=== PATIENT | male | born 1960 | race Caucasian/White ===

== ENCOUNTER 2017-10-04 14:12 | Inpatient (IN) | payer OTHER ==
[~2017-10-04] VITALS: Ht 193 cm; Wt 96.8 kg
[~2017-10-04 14:12] MED LIST: AFLURIA 2045 MCG/0.1 IM; CARDIZEM CD 12120 MG PO; CYCLOBENZAPRINE10 M3 PO; ELIQUIS5 MG PO; FOLIC ACID 1 MG PO; LYRICA75 MG PO; NICOTINE T21 MG/24 H TD; TRAMADOL HCL50 MG PO; TRAMADOL50 MG PO; VITAMIN B150 MG PO; VOLTAREN GEL1% TOP
--- NOTE | 2017-10-04 14:18 | ED CARDIAC/CP/PALPITATIONS ---
History of Present Illness General Chief Complaint: Chest Pain Stated Complaint: CHEST PAIN Source: patient, old records Exam Limitations: no limitations Vital Signs & Intake/Output Vital Signs & Intake/Output Vital Signs Date Time Temp Pulse Resp B/P B/P Pulse O2 O2 Flow FiO2 Mean Ox Delivery Rate 10/06 0630 98.5 87 20 144/88 96 10/05 2245 98.7 117 20 158/86 98 Room Air 10/05 1456 97.5 68 20 130/80 97 ED Intake and Output 10/06 0000 10/05 1200 Intake Total 1470 120 Output Total 320 Balance 1150 120 Intake, IV 110 Intake, Oral 1360 120 Output, Urine 320 Patient 255 lb Weight Allergies Coded Allergies: NSAIDS (Non-Steroidal Anti-Inflamma (TURNED WHITE 10/04/17) ibuprofen (TURNED WHITE 10/04/17) Triage Nurses Notes Reviewed? 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 Patient states his last alcohol beverage was today Nursing indicates the patient was given 325 of aspirin and 1 sublingual nitroglycerin by EMS with no change in symptoms of his chest pain. (aDvid FREDERICK,Josh) Reconcile Medications Diltiazem HCl (Diltiazem 24HR ER) 240 MG CAP.ER.24H 1 CAP PO DAILY HEART ( Reported) Duloxetine HCl 60 MG CAPSULE.DR 1 CAP PO DAILY MENTAL HEALTH (Reported) Oxycodone HCl 10 MG TABLET 10 MG PO Q8 PRN PAIN SCALE 7-10 (SEVERE) (Eun SHAH,[facility]) Past History Travel History Traveled to [place] past 21 day No Medical History Any Pertinent Medical History? see below for history Cardiovascular: AFIB, hypertension Psychiatric: alcohol dependence History of MRSA: No History of VRE: No History of CDIFF: No Pneumonia Vaccine: 04/21/13 Influenza Vaccine: 01/13/14 Surgical History Surgical History: non-contributory Psychosocial History Who do you live with Patient/Self Services at Home None What is your primary language Burkinan Family History Family History, If Any: MOTHER FH: diabetes mellitus FATHER FH: emphysema FH: prostate cancer Hx Contributory? No (Josh Watson) Review of Systems Review of Systems Constitutional: Reports: no symptoms. EENTM: Reports: no symptoms. Respiratory: Reports: see HPI, short of breath. Cardiovascular: Reports: see HPI, chest pain. GI: Reports: no symptoms. Genitourinary: Reports: no symptoms. Musculoskeletal: Reports: no symptoms. Skin: Reports: no symptoms. Neurological/Psychological: Reports: no symptoms. Hematologic/Endocrine: Reports: no symptoms. Immunologic/Allergic: Reports: no symptoms. All Other Systems: Reviewed and Negative (Josh Watson) Physical Exam Physical Exam General Appearance: no apparent distress, alert, comfortable Head: atraumatic Eyes: Bilateral: normal appearance, PERRL, EOMI. Ears, Nose, Throat: normal pharynx, normal ENT inspection Neck: normal inspection Respiratory: normal breath sounds, chest non-tender, no respiratory distress Cardiovascular: tachycardia, irregularly irregular Peripheral Pulses: 2+ radial (R) Gastrointestinal: normal bowel sounds, soft, non-tender Extremities: normal inspection, no edema Neurologic/Psych: no motor/sensory deficits, awake Skin: intact, normal color Core Measures ACS in differential dx? Yes CVA/TIA Diagnosis No Sepsis Present: No Sepsis Focused Exam Completed? No (Josh Watson) Progress Differential Diagnosis: AMI, aortic dissection, atrial fibrillation, cholecystitis, CHF/pulm edema, costochondritis, hyperkalemia, hypovolemia, hyperthyroid, hyperventilation, intracranial hemorrhage, musculoskeletal pain, myocarditis, pancreatitis, pericarditis, pneumonia, pneumothorax, PSVT, pulmonary embolism, PUD/GERD, PVCs/PACs, respiratory failure, sepsis, unstable angina, V-fib/V-Tach, WPW syndrome Plan of Care: Orders Procedure Date/time Status CBC WITHOUT DIFFERENTIAL 10/06 0600 Active MISSING MEDICATION FORM 10/06 UNK Active Weight 10/05 1821 Active Vital Signs 10/05 182 Active Teach/Educate 10/05 182 Active Pain Treatment and Response 10/05 182 Active Nutritional Intake, Monitor 10/05 182 Active Isolation 10/05 182 Active Intake & Output 10/05 182 Active Patient Care Conference 10/05 1821 Active Activity/Ambulation 10/05 1820 Active ECHOCARDIOGRAM 10/05 1358 Active LIPASE 10/05 0205 Complete AMYLASE 10/05 0205 Complete Therapeutic Exercise X 15 10/05 UNK Complete Gait Training, 15 Min 10/05 UNK Complete PT EVAL LOW COMPLEX 20 MIN 10/05 UNK Complete Change service to 10/05 UNK Active Admit to inpatient 10/05 UNK Active Lab Add-on Test 10/05 UNK [place] [facility] [place] Active Current Medications Sig/Moshe Start time Last Medication Dose Stop Time Status Admin Diltiazem HCl 125 MG Q16H 10/06 0945 AC (Cardizem DRIP) Sodium Chloride 100 ML (Normal Saline 0.9%) Lidocaine 1 PAT DAILY 10/05 220 CAN (Lidoderm) Lidocaine 1 PAT DAILY NEEDED PRN 10/05 2200 AC (Lidoderm) Diltiazem HCl 125 MG Q24H 10/05 1800 AC 10/05 (Cardizem DRIP) 10/06 0944 1745 Sodium Chloride 100 ML (Normal Saline 0.9%) Lorazepam 2 MG Q4 10/05 1800 AC 10/06 (Ativan) 0626 Diltiazem HCl 90 MG Q6H 10/05 1400 AC 10/06 (Cardizem) 0249 Oxycodone HCl 10 MG Q8 PRN 10/05 1015 AC 10/06 (Roxicodone) 0250 Diltiazem HCl 240 MG DAILY 10/05 0900 CAN (Cardizem CD) Duloxetine HCl 60 MG DAILY 10/05 0900 CAN (Cymbalta) Enoxaparin Sodium 40 MG DAILY 10/05 0900 AC 10/05 (Lovenox) 0850 Folic Acid 1 MG DAILY 10/05 0900 AC 10/05 (Folic Acid) 0849 Multivitamins 1 TAB DAILY 10/05 0900 AC 10/05 (Theragran Vitamins) 0850 Thiamine HCl 100 MG DAILY 10/05 0900 AC 10/05 (Vitamin B1) 0850 Metoclopramide HCl 10 MG ONCE ONE 10/05 0800 CAN (Reglan) 10/05 0801 Lorazepam 0 Q1P PRN 10/05 0300 AC 10/05 (Ativan) 2104 Trimethobenzamide HCl 200 MG TID PRN 10/05 0215 AC 10/05 (Tigan) 2239 Acetaminophen 650 MG Q6P PRN 10/05 0130 AC (Tylenol) Laboratory Tests 10/06/17 0610: CBC w Diff Pending, WBC Pending, RBC Pending, Hgb Pending, Hct Pending, MCV Pending, MCH Pending, MCHC Pending, RDW Pending, Plt Count Pending, MPV Pending Patient upon initial arrival was in no apparent distress patient noted to be atrial fibrillation approximately 150 bpm patient was given his by mouth 360 ER Cardizem and was given IV 10 bolus Cardizem due to persistent rapid A. fib Patient had no change of his chest pain with 2 sublingual nitroglycerin Patient does state that his chest pain has mildly improved he is complaining of a chronic right knee pain where he states that he had an MRI performed recently showing "cartilage damage" patient denies any new mechanism injury to his right knee Patient's was discussed with that narcotics do not be administered due to his intoxication level and he understood he was offered IV Tylenol which he declines Patient still has continued chest pain CT angiogram was negative for pulmonary embolism percent troponin was unremarkable patient was given his by mouth Cardizem with minimal change of rapid A. fib Patient was discussed with Dr. Gillespie who advised Cardizem IV bolus Patient was given 10 more milligrams of IV Cardizem which improved his rate at approximately 80-90 bpm no drip was needed at this time patient will be placed in telemetry observation. Discussed observation placement with patient who agrees Diagnostic Imaging: Viewed by Me: CT Scan. Radiology Impression: no acute abnormality, no fracture Initial ED EKG: AFIB, 129 AFIB Comments: PATIENT: NGA GUEVARA PRESENT AGE: 57 PATIENT ACCOUNT NO: [id number] : 60 LOCATION: [facility] ORDERING PHYSICIAN: Josh FREDERICK SERVICE DATE: 10/04/17 EXAM TYPE: CAT - CTA CHEST-PULMONARY EMBOLISM EXAMINATION: CT ANGIOGRAM OF THE CHEST WITH AND WITHOUT CONTRAST (CT PULMONARY ANGIOGRAM FOR PE) CLINICAL INFORMATION: Chest pain, shortness of breath RAPID AFIB, EVAL PE COMPARISON: CT chest 06/27/2013. TECHNIQUE: Prior to contrast administration, noncontrast localization images were obtained. Subsequently, multidetector volumetric imaging was performed from the thoracic inlet to below the diaphragms following the administration of 80 mL Omnipaque 350 intravenous contrast. No contrast reaction reported. Sagittal, coronal, and MIP oblique sagittal reformatted images were obtained on the CT workstation, uploaded to PACS, and reviewed. Total exam dose-length product 487.01 mGy-cm. FINDINGS: QUALITY OF STUDY/CONTRAST BOLUS: Satisfactory PULMONARY ARTERIES: No central or segmental pulmonary emboli. THORACIC AORTA: No aneurysm or dissection. LUNG: No focal consolidation, nodules or masses. PLEURA: There are 2 semilunar low attenuating lesions that the mid right diaphragm. This is best appreciated on the coronal image #60 and 53. These measure 1.7 x 0.6 and 1.2 x 0.6 cm respectively. They contain no calcification. They are smooth bordered. Both are new since the CT of chest of 06/27/2013. These have low density, Hounsfield unit density measurements of -122 and -180, suggesting fatty deposits. There are stable chronic pleural calcifications at both lung apices. There is no pleural effusion. MEDIASTINUM: Normal heart size. No pericardial effusion. No hilar or mediastinal lymphadenopathy. No evidence of septal bowing or right heart strain. CHEST WALL/AXILLA: No axillary or internal mammary lymphadenopathy. OSSEOUS STRUCTURES: No acute or suspicious osseous abnormality. UPPER ABDOMEN: Unremarkable. No reflux of contrast into the hepatic veins to suggest elevated right heart pressures. IMPRESSION: 1. No evidence of pulmonary embolism. 2. No acute change of the chest. VTE: negative DICTATED BY: Jeramy Ryan MD DATE/TIME DICTATED:10/04/171609 CAMP COOK:DIANA DATE/TIME TRANSCRIBED:10/04/17 (Josh Watson) Departure Departure Disposition: STILL A PATIENT Condition: Stable Clinical Impression Primary Impression: Atrial fibrillation with RVR Secondary Impressions: Alcohol dependence, Chest pain Referrals: Patient Has No Primary Care Dr (PCP/Family) Departure Forms: Customer Survey General Discharge Information Observation Note Spoke With: Easton SHAH,Kaity Physician Advisor Notified: ANIKA SHAH,STEVE Jang Place Patient In: Non-ED OBS Care Area Rationale for Observation: My rational for observation is as follows [patient requires repeat blood work telemetry monitoring cardiology consultation CIWA scoring pain management and possible IV Cardizem drip]. (Josh Watson) Departure Prescriptions: Current Visit Scripts Oxycodone HCl 10 MG PO Q8 PRN PAIN SCALE 7-10 (SEVERE) #120 TAB PA/APPEALS AND GENERALIST CLERK Co-Sign Statement Statement: ED Attending supervision documentation- [y] I saw and evaluated the patient. I have also reviewed all the pertinent lab results and diagnostic results. I agree with the findings and the plan of care as documented in the PA's/APPEALS AND GENERALIST CLERK's documentation. [] I have reviewed the ED Record and agree with the PA's/APPEALS AND GENERALIST CLERK's documentation. [] Additions or exceptions (if any) to the PAs/APPEALS AND GENERALIST CLERK's note and plan are summarized below: 57-year-old male came in with chest pain and A. fib with RVR also intoxicated. The patient's CT angiogram was negative for PE. The patient's heart rate was controlled by 2 IV Cardizem boluses and giving him his regular p.o. Cardizem dose from home. But given the patient's state and his chest pain we will admit him for further evaluation. Also the patient's heart rate needs to be watched closely to make sure that his heart rate stays under control with the Cardizem that he is on. (Eun SHAH,Dieter) Critical Care Note Critical Care Note Critical Care Time: 30-74 min (Josh Watson)
[2017-10-04] MEDS ORDERED: DULOXETINE HCL60 MG PO (14:39)
[2017-10-04] MEDS ORDERED: DILTIAZEM 24HR240 MG PO (14:40)
[2017-10-04 14:58] LABS: ABSOLUTE BASOPHIL COUNT 0 /CUMM (0.0-0.2); ABSOLUTE EOSINOPHIL COUNT 0 /CUMM (0.0-0.7); ABSOLUTE GRANULOCYTE CT 8.7 /CUMM (1.4-6.5); ABSOLUTE LYMPH COUNT 2.3 /CUMM (1.2-3.4); BASOPHIL % 0.2 % (0.0-2.0); EOSINOPHIL % 0.3 % (0-5); GRANULOCYTE % 72.1 % (42.2-75.2); HEMATOCRIT 48.4 % (42-52); MEAN CORPUSCULAR HGB 32.9 PG (27.0-31.0); MEAN CORPUSCULAR HGB CONC 34.6 G/DL (33.0-37.0); MEAN PLATELET VOLUME 8.6 FL (7.4-10.4); PLATELET COUNT 258 /CUMM (130-400); RBC DISTRIBUTION WIDTH 15.9 % (11.5-14.5)
--- NOTE | 2017-10-04 16:27 | CT SCAN REPORT ---
EXAMINATION: CT ANGIOGRAM OF THE CHEST WITH AND WITHOUT CONTRAST (CT PULMONARY ANGIOGRAM FOR PE) CLINICAL INFORMATION: Chest pain, shortness of breath RAPID AFIB, EVAL PE COMPARISON: CT chest 06/27/2013. TECHNIQUE: Prior to contrast administration, noncontrast localization images were obtained. Subsequently, multidetector volumetric imaging was performed from the thoracic inlet to below the diaphragms following the administration of 80 mL Omnipaque 350 intravenous contrast. No contrast reaction reported. Sagittal, coronal, and MIP oblique sagittal reformatted images were obtained on the CT workstation, uploaded to PACS, and reviewed. Total exam dose-length product 487.01 mGy-cm. FINDINGS: QUALITY OF STUDY/CONTRAST BOLUS: Satisfactory PULMONARY ARTERIES: No central or segmental pulmonary emboli. THORACIC AORTA: No aneurysm or dissection. LUNG: No focal consolidation, nodules or masses. PLEURA: There are 2 semilunar low attenuating lesions that the mid right diaphragm. This is best appreciated on the coronal image #60 and 53. These measure 1.7 x 0.6 and 1.2 x 0.6 cm respectively. They contain no calcification. They are smooth bordered. Both are new since the CT of chest of 06/27/2013. These have low density, Hounsfield unit density measurements of -122 and -180, suggesting fatty deposits. There are stable chronic pleural calcifications at both lung apices. There is no pleural effusion. MEDIASTINUM: Normal heart size. No pericardial effusion. No hilar or mediastinal lymphadenopathy. No evidence of septal bowing or right heart strain. CHEST WALL/AXILLA: No axillary or internal mammary lymphadenopathy. OSSEOUS STRUCTURES: No acute or suspicious osseous abnormality. UPPER ABDOMEN: Unremarkable. No reflux of contrast into the hepatic veins to suggest elevated right heart pressures. IMPRESSION: 1. No evidence of pulmonary embolism. 2. No acute change of the chest. VTE: negative
--- NOTE | 2017-10-04 19:56 | History & Physical ---
General Information and HPI Allergies/Medications Allergies: Coded Allergies: NSAIDS (Non-Steroidal Anti-Inflamma (TURNED WHITE 10/04/17) ibuprofen (TURNED WHITE 10/04/17) Home Med list Diltiazem HCl (Diltiazem 24HR ER) 240 MG CAP.ER.24H 1 CAP PO DAILY HEART ( Reported) Duloxetine HCl 60 MG CAPSULE.DR 1 CAP PO DAILY MENTAL HEALTH (Reported) Past History Travel History Traveled to [place] past 21 day No Medical History Neurological: NONE EENT: NONE Cardiovascular: AFIB, hypertension Respiratory: NONE Gastrointestinal: NONE Hepatic: NONE Renal: NONE Musculoskeletal: FIBROMYALGIA PLANTAR FASCIITIS Psychiatric: alcohol dependence Endocrine: NONE History of MRSA: No History of VRE: No History of CDIFF: No Pneumonia Vaccine: 04/21/13 Surgical History Surgical History: non-contributory Past Family/Social History Family History Relations & Conditions if any MOTHER FH: diabetes mellitus FATHER FH: emphysema FH: prostate cancer Psychosocial History Services at Home: None ETOH Use: alcoholic Illicit Drug Use: cocaine, marijuana Core Measures/Misc (11/28) Cerebrovascular Accident CVA/TIA Diagnosis: No Sepsis (View protocol) If YES complete Sepsis Event Note If YES complete Sepsis Event Note
--- NOTE | 2017-10-04 23:38 | History & Physical ---
Panda Vuong MD 10/04/17 0850: General Information and HPI History of Present Illness: 57-year-old man with past medical history of atrial fibrillation not on anticoagulation due to falls, medication noncompliance, EtOH abuse, hypertension , and depression seen for evaluation of exertional shortness of breath, chest pain, and right knee pain. Patient reports that he was crossing the road this morning when his right knee "buckled" causing him to fall to the ground. He reports that he has had severe knee pain ever since prompting him to come to the [facility]. Over the past several days he has been drinking reportedly 3-4 glasses of wine and "partied hard". During this time he had progressively worsening shortness of breath and admits that he has not been taking his medications. Today he developed chest pain that has been progressively worsening. In the ED patient was found to be in atrial fibrillation with rapid ventricular response for which he was given 2 pushes of intravenous Cardizem 10 mg. His chest pain improved after receiving those medications but he continues to complain of severe right knee pain and is demanding intravenous morphine. Review of systems He otherwise denies any headache, fever, chills, blurred/double vision, lightheadedness/dizziness, current chest pain, palpitations, heartburn, current shortness of breath, cough, nausea, vomiting, diarrhea, constipation, abdominal pain, urinary symptoms, numbness, tingling, or weakness. Objective Vital signs: Temp 97.7-98.0, HR 80-174, RR 16-18, BP 115-140/66-89, O2 95-99% on room air Physical exam -General: Well-developed, well-nourished middle-aged man in no acute distress -HEENT: NCAT, Ebony, EOMI, anicteric sclera, moist mucous membranes -Neck: Supple, no JVD, trachea midline, no accessory respiratory muscle use -Cardio: Irregularly irregular, no murmurs/gallops/rubs; tachycardic -Pulmonary: Clear to auscultation bilaterally -Abdomen: Soft, nontender, nondistended, bowel sounds intact -Neuro: Awake and alert, cranial nerves II through XII grossly intact -Extremities: Normal pulses, no edema Labs/imaging/studies -CBC: WBC 12.0, hemoglobin 16.8, hematocrit 48.4, platelet 258 -BMP: Sodium 143, K4.0, CL 104, CO2 21, BUN 7, creatinine 0.9, anion gap 19, glucose 113 -LFT: AST/ALT 68/63, ALP 88 -Miscellaneous: Troponin I <0.01, BNP 230, EtOH 245 -Echocardiogram 01/16/14: LVEF 60% without regional motion abnormalities -EKG: Atrial fibrillation with rapid ventricular response and T-wave inversions V1-V4 -CTA with PE protocol: 1. No evidence of pulmonary embolism. 2. No acute change of the chest. VTE: negative Assessment 57-year-old man with multiple medical problems significant for A. fib not on anticoagulation due to recurrent fall, hypertension, and EtOH abuse seen for evaluation of shortness breath, chest pain and right knee pain. Presently patient denies any chest pain or shortness of breath but admits to severe right knee pain. Vital signs are significant for heart rates ranging 150 -170s that normalized after receiving 20 mg of intravenous diltiazem. Physical examination demonstrates an irregularly irregular tachycardic heart rate with clear lungs and otherwise unremarkable. Significant labs include WBC 12.0, EtOH 245, and troponin I <0.01. EKG demonstrates A. fib with RVR and T-wave inversions V1-V4. CTA chest ruled out pulmonary embolism. Patient received full strength aspirin and sublingual nitroglycerin en route to the ED. In the ED he received 1 g of intravenous acetaminophen, intravenous Cardizem, further nitroglycerin. Clinically patient appears to have had shortness of breath and chest pain secondary to his atrial fibrillation with medication noncompliance. He has not taken his Cardizem for at least one day resulting into rapid ventricular response. He was previously on anticoagulation but was followed off due to history of multiple falls; his CHADsVASc score is only 1. Patient is to be placed under observation on the telemetry floor for telemetry monitoring, serial troponin/EKG, echocardiogram, cardiology consultation, and rate control medications. Problem list -Known atrial fibrillation, now with rapid ventricular response due to medication noncompliance -Right knee pain -History of EtOH abuse -Hypertension -Depression -History of multiple falls Plan -Placed under observation on telemetry floor -Telemetry monitoring -CIWA -consider starting aspirin 81 mg p.o. daily -Restart Cardizem CD 240 mg p.o. daily -Ativan PRN per CIWA -Thiamine/folate/multivitamin -Continue home meds: Cymbalta -Cardiology consult for chest pain -PT evaluation -Trend troponin until peak or three negative sets -Check TSHR -X-ray right knee -Pain control with acetaminophen -Reguar Diet -DVT prophylaxis with lovenox -Full code Allergies/Medications Allergies: Coded Allergies: NSAIDS (Non-Steroidal Anti-Inflamma (TURNED WHITE 10/04/17) ibuprofen (TURNED WHITE 10/04/17) Home Med list Diltiazem HCl (Diltiazem 24HR ER) 240 MG CAP.ER.24H 1 CAP PO DAILY HEART ( Reported) Duloxetine HCl 60 MG CAPSULE.DR 1 CAP PO DAILY MENTAL HEALTH (Reported) Past History Travel History Traveled to [place] past 21 day No Medical History Blood Transfusion Hx: No Neurological: NONE EENT: NONE Cardiovascular: AFIB, hypertension Respiratory: NONE Gastrointestinal: NONE Hepatic: NONE Renal: NONE Musculoskeletal: FIBROMYALGIA PLANTAR FASCIITIS ARTHRITIS Psychiatric: alcohol dependence Endocrine: NONE Cancer(s): NONE History of MRSA: No History of VRE: No History of CDIFF: No Isolation History: Standard Pneumonia Vaccine: 04/21/13 Surgical History Surgical History: non-contributory Past Family/Social History Family History Relations & Conditions if any MOTHER FH: diabetes mellitus FATHER FH: emphysema FH: prostate cancer Psychosocial History Services at Home: None Smoking Status: Former Smoker ETOH Use: alcoholic Illicit Drug Use: cocaine, marijuana Review of Systems Review of Systems Constitutional: Reports: see HPI. Exam & Diagnostic Data Last 24 Hrs of Vital Signs/I&O Vital Signs Date Time Temp Pulse Resp B/P B/P Pulse O2 O2 Flow FiO2 Mean Ox Delivery Rate 10/05 0144 130 18 130/80 10/05 0022 114 18 122/80 10/04 2142 98.2 103 18 126/78 97 Room Air 10/04 1924 97.7 92 18 115/89 99 Room Air 10/04 1748 98.0 92 18 116/78 98 Room Air 10/04 1720 80 10/04 1654 91 18 116/75 99 Room Air 10/04 1649 111 138/89 10/04 1649 108 18 119/89 99 Room Air 10/04 1638 111 18 138/89 98 Room Air 10/04 1518 98 Room Air 10/04 1515 131 16 140/66 98 Room Air 10/04 1510 174 130/78 10/04 1503 174 18 130/78 99 Room Air 10/04 1445 146 18 140/86 98 Room Air 10/04 1418 98.0 141 18 129/75 95 Room Air Intake & Output 10/05 0800 10/05 0000 10/04 1600 Intake Total 120 Output Total Balance 120 Intake, Oral 120 Patient 102.058 kg 102.058 kg Weight Assessment/Plan As Ranked By This Provider Problem List: 1. Chest pain Core Measures/Misc (11/28) Acute Coronary Syndrome ACS Diagnosis: No Congestive Heart Failure Congestive Heart Failure Diagnosis No Cerebrovascular Accident CVA/TIA Diagnosis: No VTE (View Protocol) VTE Risk Factors Age>40 No Mechanical VTE Prophylaxis d/t N/A MechProphylax Ordered No VTE Pharm Prophylaxis d/t NA PharmProphylax ordered Sepsis (View protocol) Sepsis Present: No If YES complete Sepsis Event Note If YES complete Sepsis Event Note Kaity Mccormack MD 10/05/17 0152: Core Measures/Misc (11/28) Sepsis (View protocol) If YES complete Sepsis Event Note If YES complete Sepsis Event Note Attending MD Review Statement Attending Statement Attending MD Statement: examined this patient, discuss w/resident/PA/TECHNICAL SERVICES LIBRARIAN, agreed w/resident/PA/TECHNICAL SERVICES LIBRARIAN, reviewed EMR data (avail) Attending Assessment/Plan: 57M PMH HTN, paroxysmal atrial fibrillation not on anti-coagulation due to frequent falls, EtOH abuse, chronic knee pain presenting with a sensation of chest heaviness and shortness of breath. Patient has been non-compliant with his Cardizem the past few days as he went on a drinking binge with a friend of his. He is typically compliant. He does not follow up with cardiology as he believed taking the Cardizem daily, which he did, would control his a-fib. He reports central chest heaviness, not worse with exertion but worse in the humidity, with dyspnea on exertion. He has significant right knee pain, and fell earlier today when he felt it give out. He had no symptoms prior and did not hit his head. He has no neurological deficit. Was found to be in rapid atrial fibrillation in the 140's, improved to 100's with IV Cardizem. EKG shows rapid atrial fibrillation without ST/T changes. Exam benign, labs unremarkable. 1. Rapid atrial fibrillation with RVR 2. Chest pressure at rest 3. Right knee pain 4. Fall, initial Plan - Observation in telemetry - Start PO Cardizem - No anti-coagulation due to frequent falls - Ativan PRN CIWA, monitor for signs of withdrawal - Serial EKG and troponin - Obtain echocardiogram - Cardiology consult - DVT PPx - Cardiology consult - DVT PPx
[2017-10-05] VITALS: BP 130/80
[2017-10-05 02:00] VITALS: BP 130/80
[2017-10-05 02:43] LABS: ABSOLUTE BASOPHIL COUNT 0.1 /CUMM (0.0-0.2); ABSOLUTE EOSINOPHIL COUNT 0.1 /CUMM (0.0-0.7); ABSOLUTE GRANULOCYTE CT 8.9 /CUMM (1.4-6.5); ABSOLUTE LYMPH COUNT 1.8 /CUMM (1.2-3.4); ABSOLUTE MONOCYTE COUNT 1.3 /CUMM (0.10-0.60); BASOPHIL % 0.5 % (0.0-2.0); EOSINOPHIL % 0.5 % (0-5); HEMATOCRIT 52.2 % (42-52); MEAN CORPUSCULAR HGB 32.5 PG (27.0-31.0); MEAN CORPUSCULAR HGB CONC 33.3 G/DL (33.0-37.0); MEAN CORPUSCULAR VOLUME 97.5 FL (80.0-94.0); MEAN PLATELET VOLUME 8.7 FL (7.4-10.4); PLATELET COUNT 270 /CUMM (130-400); RBC DISTRIBUTION WIDTH 15.8 % (11.5-14.5); RED BLOOD CELL CT 5.35 /CUMM (4.70-6.10); WHITE BLOOD CELL COUNT 12.2 /CUMM (4.8-10.8)
[2017-10-05 04:00] VITALS: BP 130/80
[2017-10-05 06:00] VITALS: BP 130/80; BP 138/90
--- NOTE | 2017-10-05 07:18 | PN-Observation ---
David Masterson 10/05/17 0717: Observation Note Observation Note _ I have personally examined NGA GUEVARA. him disposition is uncertain at this time. Before a determination can be made, he requires continued observation for the following reasons [tachycardia and alcohol withdrawal]. Assessment/Plan Medical Assessment: 57-year-old male with history of atrial fibrillation, not on anti-coagulants due to fall history, and alcohol abuse/dependence and depression. Patient being seen for alcohol withdrawal and tachycardia in the setting of atrial fibrillation with RVR . Problem List: 1. Alcohol abuse 2. Atrial fibrillation with RVR 3. Alcohol withdrawal 4. Fall Plan: Plan: * Continue CIWA protocol for EtOH withdrawal * Tramadol and oxycodone for knee pain * Lidocaine for right shoulder pain * Magnesium oxide p.o. for supplementation * Tigan for nausea * No anticoagulation currently as patient is a high fall risk and has a fall history at home, will not be able to go home on anticoagulation * F/u amylase and lipase * X-ray right knee * Cardiology consulted Code status: Full code Prophylaxis: Lovenox Labs: CBC and BEP, Mg++ Diet: Regular Subjective Follow-up For: EtOH withdrawal Atrial fibrillation with RVR Tele-Events Since Last Visit: Atrial fibrillation, atrial flutter and severe tachycardia overnight, episodes with rates into the 180s Subjective: Patient seen resting in the bed. In no acute distress. He is complaining of knee pain to his right knee after falling before coming to the hospital. Patient reports that he "partied too hard" the past few days, had been drinking large amounts of alcohol prior to falling and hurting his knee. He has a history of falls because his knee often "gives out". He also has right shoulder pain, and although he is extremely tachycardic, some of this may be due to the pain and he is eager to have his pain controlled while hospitalized, since he cannot "self medicate" anymore with alcohol. The patient also complains of abdominal pain, nausea and dry heaving that began overnight. Review of Systems Constitutional: Denies: chills, fever, weakness. Cardiovascular: Denies: chest pain, peripheral edema. Respiratory: Denies: cough, short of breath. Gastrointestinal: Reports: abdominal pain, nausea. Objective Last 24 Hrs of Vital Signs/I&O Vital Signs Date Time Temp Pulse Resp B/P B/P Pulse O2 O2 Flow FiO2 Mean Ox Delivery Rate 10/05 0700 152 10/05 0600 98.2 116 18 130/80 10/05 0600 97.5 109 22 138/90 97 10/05 0400 98.2 115 18 130/80 10/05 0200 98.2 130 18 130/80 10/05 0144 130 18 130/80 10/05 0022 114 18 122/80 10/05 0000 111 18 130/80 10/04 2142 98.2 103 18 126/78 97 Room Air 10/04 1924 97.7 92 18 115/89 99 Room Air 10/04 1748 98.0 92 18 116/78 98 Room Air 10/04 1720 80 07 1654 91 18 116/75 99 Room Air 10/04 1649 111 138/89 10/04 1649 108 18 119/89 99 Room Air 10/04 1638 111 18 138/89 98 Room Air 10/04 1518 98 Room Air 10/04 1515 131 16 140/66 98 Room Air 10/04 1510 174 130/78 10/04 1503 174 18 130/78 99 Room Air 10/04 1445 146 18 140/86 98 Room Air 10/04 1418 98.0 141 18 129/75 95 Room Air Intake & Output 10/05 1600 10/05 0800 10/05 0000 Intake Total 120 120 Output Total Balance 120 120 Intake, Oral 120 120 Patient 102.058 kg Weight Physical Exam General Appearance: Alert, Oriented X3, Cooperative, No Acute Distress HEENT: Atraumatic, PERRLA, EOMI Neck: Supple, No JVD Cardiovascular: Normal S1, Normal S2, Tachycardic Lungs: Clear to Auscultation Abdomen: Normal Bowel Sounds, Tenderness in the upper quadrants bilaterally Viviana SHAH,Teto 10/05/17 1252: Observation Note Observation Note _ I have personally examined NGA GUEVARA. him disposition is uncertain at this time. Before a determination can be made, he requires continued observation for the following reasons Control of rapid A. fib. Management of alcohol withdrawal syndrome Patient seen and examined. Lying comfortably in bed not in any acute distress. Actually jovial. Denies chest pain or palpitations. Denies shortness of breath. On telemetry remains in atrial fibrillation with rapid ventricular response. Currently on the Cardizem drip running at 7.5 mg/h. Complains of Right knee pain. He does admit to chronic pain in that knee and has been told that he has ligamentous injury in the past. On examination the knee is not swollen not warm to touch or erythematous. He has normal range of motion of the knee. He also complains of pain in the right shoulder just above the scapula posteriorly. Again he has normal range of motion here. He admits to chronic pain on and off there. He is requesting for oxycodone for pain control stating that the tramadol he is currently on does not help him. Labs reviewed. TSH within normal limits. He has leukocytosis of 12.2 probably reactive. No clinical evidence of infection at present. Problems: 1. Atrial fibrillation with rapid ventricular response; not on anticoagulation therapy. 2. History of frequent falls 3. Alcohol withdrawal syndrome 4. Degenerative joint disease. Plan: -Continue Cardizem infusion. Follow-up with cardiology service for optimization of rate control. -Follow-up echocardiogram -Fall appears to be mechanical secondary to his underlying degenerative joint disease. -CIWA was reported as 10 today. He has received 3 mg of IV Ativan so far today. Recommend Ativan 2 mg orally every 4 hours. No addition continue Ativan IV as needed elevated CIWA scores.
[2017-10-05] MEDS ORDERED: OXYCODONE HCL10 M2 PO (10:52)
--- NOTE | 2017-10-05 13:58 | Cons- Cardiology ---
General Information and HPI Consulting Request Date of Consult: 10/05/17 Requested By: Teto Michelle MD Reason for Consult: Atrial fibrillation History of Present Illness: The patient is a 57-year-old male with history of chronic atrial fibrillation who presents after a fall. He has had multiple recent falls, and therefore has been determined to not be a good anticoagulant candidate. He has been taking diltiazem for rate control, however he has not had recent follow-up with his physicians. He has been drinking heavily recently. In the emergency department he was found to be in atrial fibrillation with rapid ventricular rate. He was treated with IV diltiazem, and the ventricular rate is under control. Allergies/Medications Allergies: Coded Allergies: NSAIDS (Non-Steroidal Anti-Inflamma (TURNED WHITE 10/04/17) ibuprofen (TURNED WHITE 10/04/17) Home Med List: Diltiazem HCl (Diltiazem 24HR ER) 240 MG CAP.ER.24H 1 CAP PO DAILY HEART ( Reported) Duloxetine HCl 60 MG CAPSULE.DR 1 CAP PO DAILY MENTAL HEALTH (Reported) Oxycodone HCl 10 MG TABLET 10 MG PO Q8 PRN PAIN SCALE 7-10 (SEVERE) Past History Travel History Traveled to [facility] past 21 day No Medical History Blood Transfusion Hx: No Neurological: NONE EENT: NONE Cardiovascular: AFIB, hypertension Respiratory: NONE Gastrointestinal: NONE Hepatic: NONE Renal: NONE Musculoskeletal: FIBROMYALGIA PLANTAR FASCIITIS ARTHRITIS Psychiatric: alcohol dependence Endocrine: NONE Cancer(s): NONE Surgical History Surgical History: non-contributory Family History Relations & Conditions If Any: MOTHER FH: diabetes mellitus FATHER FH: emphysema FH: prostate cancer Psychosocial History Services at Home: None Smoking Status: Former Smoker ETOH Use: alcoholic Illicit Drug Use: cocaine, marijuana Assessment/Plan Assessment/Plan Assessment: The patient is a 57-year-old male with history of chronic atrial fibrillation presenting with chest discomfort and atrial fibrillation with rapid ventricular rate. He has been drinking increased alcohol recently. He had a recent fall and he has been following regularly. Recommendations: * Restart diltiazem at increased dose of 90 mg p.o. every 6 hours, with plan to change to Cardizem CD 360 mg daily starting tomorrow * Echocardiogram * Continue aspirin. The patient has been taken off full anticoagulation because of frequent falls. Consult Acknowledgment - Thank you for your consult request.
[2017-10-05 14:56] VITALS: BP 130/80
[2017-10-05 22:45] VITALS: BP 158/86
--- NOTE | 2017-10-06 06:18 | PN-Observation ---
Observation Note Observation Note _ I have personally examined NGA GUEVARA. him disposition is uncertain at this time. Before a determination can be made, he requires continued observation for the following reasons [alcohol withdrawal]. Assessment/Plan Medical Assessment: 57-year-old male with history of atrial fibrillation, not on anti-coagulants due to fall history, and alcohol abuse/dependence and depression. Patient being seen for alcohol withdrawal and tachycardia in the setting of atrial fibrillation with RVR. Patient was on Cardizem drip, we have changed this to p.o. Cardizem and will continue to monitor the patient's heart rate. Overnight, the patient was in atrial fibrillation and atrial flutter and tachycardic, but is improved this morning with heart rate in the 90s-100 range. He is still complaining of knee pain, but was unable to go down to the x-ray yesterday because of the drip. The patient's CIWA is approximately 13 this morning, but is difficult to completely assess as the patient is very focused on minimizing his pain while here and possibly overreporting. In the setting of constipation, heavy opioid use is not recommended, and tramadol should have no significant difference for the joint pain compared to high-dose opiates. Problem List: 1. Alcohol abuse 2. Alcohol withdrawal 3. Chest pain 4. Atrial fibrillation with RVR Plan: * Continue CIWA protocol for EtOH withdrawal * Oxycodone 10 mg every 8 hours for knee pain * Magnesium oxide p.o. for supplementation * Tigan for nausea * No anticoagulation currently as patient is a high fall risk and has a fall history at home, will not be able to go home on anticoagulation * Continue low-dose aspirin * X-ray right knee * Cardiology consulted Code status: Full code Prophylaxis: Lovenox Labs: CBC and BEP Diet: Regular DVT/Prophylaxis: mechanical Subjective Follow-up For: EtOH withdrawal A. fib with RVR Tele-Events Since Last Visit: Overnight, atrial fibrillation and atrial flutter, with tachycardia up to 107 bpm Subjective: Patient seen resting comfortably in the bed. Currently he complains of pain in his right knee, right shoulder, headache, abdomen, as well as chest pain. The chest pain is reproducible with palpation or movement, located inferiorly bilaterally. The patient appears in no acute distress. The patient says that lidocaine does not help with the shoulder pain, tramadol does not help with the knee pain, but oxycodone could help with all the pain if his dose and frequency were higher. Patient has not had a bowel movement since 10/02. His CIWA is approximately 13, as he is complaining of nausea but no longer dry heaving, complains of headache, agitation and restlessness and anxiety, sweating, but no audiovisual tactile disturbances. Review of Systems Constitutional: Reports: diaphoresis. Denies: chills, fever. Cardiovascular: Reports: chest pain. Denies: edema, palpitations. Respiratory: Denies: cough, short of breath. Gastrointestinal: Denies: abdominal pain, nausea. Neurological/Psychological: Reports: anxiety, headache. Denies: tremors. Objective Last 24 Hrs of Vital Signs/I&O Vital Signs Date Time Temp Pulse Resp B/P B/P Pulse O2 O2 Flow FiO2 Mean Ox Delivery Rate 10/06 0630 98.5 87 20 144/88 96 10/05 2245 98.7 117 20 158/86 98 Room Air 10/05 1456 97.5 68 20 130/80 97 Intake & Output 10/06 1600 10/06 0800 10/06 0000 Intake Total 675.5 690 Output Total Balance 675.5 690 Intake, IV 15.5 30 Intake, Oral 660 660 Patient 115.666 kg Weight Physical Exam General Appearance: Alert, Oriented X3, Cooperative, No Acute Distress HEENT: Atraumatic, PERRLA, EOMI, Mucous Membr. moist/pink Neck: Supple, No JVD Cardiovascular: Regular Rate, Normal S1, Normal S2, No Murmurs Lungs: Clear to Auscultation, Normal Air Movement Abdomen: Soft, No Tenderness Neurological: Normal Gait, Normal Speech
[2017-10-06 06:30] VITALS: BP 144/88
[2017-10-06 08:19] LABS: ABSOLUTE BASOPHIL COUNT 0 /CUMM (0.0-0.2); ABSOLUTE EOSINOPHIL COUNT 0.1 /CUMM (0.0-0.7); ABSOLUTE GRANULOCYTE CT 5.4 /CUMM (1.4-6.5); ABSOLUTE LYMPH COUNT 1.5 /CUMM (1.2-3.4); ABSOLUTE MONOCYTE COUNT 1.2 /CUMM (0.10-0.60); BASOPHIL % 0.5 % (0.0-2.0); EOSINOPHIL % 1.5 % (0-5); GRANULOCYTE % 65.8 % (42.2-75.2); MEAN CORPUSCULAR HGB CONC 34.1 G/DL (33.0-37.0); MEAN CORPUSCULAR VOLUME 96.7 FL (80.0-94.0); MEAN PLATELET VOLUME 8.9 FL (7.4-10.4); PLATELET COUNT 180 /CUMM (130-400); RBC DISTRIBUTION WIDTH 15.6 % (11.5-14.5); RED BLOOD CELL CT 4.62 /CUMM (4.70-6.10); WHITE BLOOD CELL COUNT 8.3 /CUMM (4.8-10.8)
[2017-10-06 10:07] LABS: HEMATOCRIT 44.7 % (42-52)
--- NOTE | 2017-10-06 11:09 | PN- Cardiology ---
Subjective Subjective: The patient is off IV diltiazem, and ventricular rate is under control on oral diltiazem. No chest pain. No palpitations. No lightheadedness or dizziness. Objective Vital Signs and I&Os Vital Signs Date Time Temp Pulse Resp B/P B/P Pulse O2 O2 Flow FiO2 Mean Ox Delivery Rate 10/06 629 98.5 87 20 144/88 96 10/05 2245 98.7 117 20 158/86 98 Room Air 10/05 1456 97.5 68 20 130/80 97 Intake & Output 10/06 1600 10/06 0810/06 0000 10/05 1600 10/05 0810/05 0000 Intake Total 675.5 690 780 120 120 Output Total 320 Balance 675.5 690 460 120 120 Intake, IV 15.5 30 80 Intake, Oral 660 660 700 120 120 Output, Urine 320 Patient 255 lb 225 lb Weight Physical Exam: Gen: NAD HEENT: normal Lungs: clear to auscultation, normal resp. effort Heart: irreg irreg, S1, S2, no murmurs Abdomen: Soft, nontender, no masses Extremities: No clubbing, cyanosis, or edema. Neuro: Alert and oriented x 3, cranial nerves intact Current Medications: Current Medications Sig/Moshe Start time Last Medication Dose Route Stop Time Status Admin Acetaminophen 650 MG Q6P PRN 10/05 0130 AC PO Aspirin 81 MG DAILY 10/06 09 AC 10/06 PO 1034 Aspirin 81 MG ONCE ONE 10/05 1845 DC 10/05 PO 10/05 1846 2104 Diltiazem HCl 125 MG Q16H 10/06 0945 CAN Sodium Chloride 100 ML IV Diltiazem HCl 125 MG Q24H 10/05 1800 DC 10/05 Sodium Chloride 100 ML IV 10/06 0944 1745 Diltiazem HCl 90 MG Q6H 10/05 1400 AC 10/06 PO 0800 Diltiazem HCl 240 MG DAILY 10/05 1100 DC PO Diltiazem HCl 125 MG Q24H 10/05 0300 DC 10/05 Sodium Chloride 100 ML IV 10/05 1759 0326 Docusate Sodium 100 MG DAILY NEEDED PRN 10/06 0915 AC PO Enoxaparin Sodium 40 MG DAILY 10/05 09 AC 10/06 SC 0806 Folic Acid 1 MG DAILY 10/05 09 AC 10/06 PO 0800 Gabapentin 100 MG TID 10/06 1056 UNVr PO Lidocaine 1 PAT DAILY NEEDED PRN 10/05 2200 AC TOP Lorazepam 1.5 MG Q8 10/06 1400 AC PO Lorazepam 1.5 MG Q6 10/06 1200 DC PO Lorazepam 2 MG Q4 10/05 1800 DC 10/06 PO 0626 Lorazepam 0 Q1P PRN 10/05 0300 AC 10/06 IV 0848 Magnesium Oxide 400 MG ONE ONE 10/06 1045 DC PO 10/06 1046 Multivitamins 1 TAB DAILY 10/05 0900 AC 10/06 PO 0800 Oxycodone HCl 10 MG Q8 PRN 10/05 1015 AC 10/06 PO 1034 Senna/Docusate Sodium 1 TAB BID 10/06 0910 AC 10/06 PO 1034 Thiamine HCl 100 MG DAILY 10/05 0900 AC 10/06 PO 0800 Tramadol HCl 50 MG Q6P PRN 10/05 0800 DC 10/05 PO 0849 Trimethobenzamide HCl 200 MG TID PRN 10/05 0215 AC 10/05 IM 2239 Results Last 48 Hrs of Labs/Mics: Laboratory Tests 10/06/17 0610: CBC w Diff NO MAN DIFF REQ, RBC 4.62 L, MCV 96.7 H, MCH 33.0 H, MCHC 34.1, RDW 15.6 H, MPV 8.9, Gran % 65.8, Lymphocytes % 18.0 L, Monocytes % 14.2 H, Eosinophils % 1.5, Basophils % 0.5, Absolute Granulocytes 5.4, Absolute Lymphocytes 1.5, Absolute Monocytes 1.2 H, Absolute Eosinophils 0.1, Absolute Basophils 0 10/05/17 0205: Anion Gap 19 H, Estimated GFR > 60, BUN/Creatinine Ratio 8.8, Magnesium 1.8, Troponin I < 0.01, Amylase 58, Lipase 295, CBC w Diff NO MAN DIFF REQ, RBC 5.35, MCV 97.5 H, MCH 32.5 H, MCHC 33.3, RDW 15.8 H, MPV 8.7, Gran % 73.0, Lymphocytes % 15.2 L, Monocytes % 10.8 H, Eosinophils % 0.5, Basophils % 0.5, Absolute Granulocytes 8.9 H, Absolute Lymphocytes 1.8, Absolute Monocytes 1.3 H, Absolute Eosinophils 0.1, Absolute Basophils 0.1 10/04/172037: Troponin I < 0.01 10/04/172002: Urine Opiates Screen < 100, Methadone Screen 225, Barbiturate Screen < 60, Ur Phencyclidine Scrn < 6.00, Amphetamines Screen < 100, U Benzodiazepines Scrn > 800 H, Urine Cocaine Screen < 50, Urine Cannabis Screen < 5.00 10/04/17 1447: Anion Gap 19 H, Estimated GFR > 60, BUN/Creatinine Ratio 7.8, Glucose 113 H, Calcium 9.3, Total Bilirubin 0.6, AST 68 H, ALT 63, Alkaline Phosphatase 88, Troponin I < 0.01, Roa-T-Utykulxndjg Pept 231 H, Total Protein 7.2, Albumin 4.2 , Globulin 3.0, Albumin/Globulin Ratio 1.4, TSH &T3 &Free T4 Intrp 2.540, CBC w Diff NO MAN DIFF REQ, RBC 5.10, MCV 95.0 H, MCH 32.9 H, MCHC 34.6, RDW 15.9 H , MPV 8.6, Gran % 72.1, Lymphocytes % 18.7 L, Monocytes % 8.7, Eosinophils % 0.3, Basophils % 0.2, Absolute Granulocytes 8.7 H, Absolute Lymphocytes 2.3, Absolute Monocytes 1.0 H, Absolute Eosinophils 0, Absolute Basophils 0, Serum Alcohol 245.0 Assessment/Plan Assessment/Plan Assessment: 1. Atrial fibrillation, rate under control 2. Frequent falls 3. Alcohol abuse Plan: * Change Cardizem CD to 360 mg p.o. daily * Echocardiogram pending * Continue aspirin. Anticoagulation is contraindicated because of frequent falls * Follow up 1 week after discharge Continue telemetry? Yes
--- NOTE | 2017-10-06 11:37 | PN- Housestaff ---
Subjective Follow-up For: EtOH withdrawal Atrial fibrillation Tele-Events Since Last Visit: Atrial fibrillation and atrial flutter overnight, with rate up to 170 bpm Subjective: Patient seen resting comfortably in the bed. Currently he complains of pain in his right knee, right shoulder, headache, abdomen, as well as chest pain. The chest pain is reproducible with palpation or movement, located inferiorly bilaterally. The patient appears in no acute distress. The patient says that lidocaine does not help with the shoulder pain, tramadol does not help with the knee pain, but oxycodone could help with all the pain if his dose and frequency were higher. Patient has not had a bowel movement since 10/02. His CIWA is approximately 13, as he is complaining of nausea but no longer dry heaving, complains of headache, agitation and restlessness and anxiety, sweating, but no audiovisual tactile disturbances. Review of Systems Constitutional: Denies: chills, fever. Objective Last 24 Hrs of Vital Signs/I&O Vital Signs Date Time Temp Pulse Resp B/P B/P Pulse O2 O2 Flow FiO2 Mean Ox Delivery Rate 10/06 0630 98.5 87 20 144/88 96 10/05 2245 98.7 117 20 158/86 98 Room Air 10/05 1456 97.5 68 20 130/80 97 Intake & Output 10/06 1600 10/06 0800 10/06 0000 Intake Total 675.5 690 Output Total Balance 675.5 690 Intake, IV 15.5 30 Intake, Oral 660 660 Patient 115.666 kg Weight Physical Exam General Appearance: Alert, Oriented X3, Cooperative, No Acute Distress Assessment/Plan Assessment: 57-year-old male with history of atrial fibrillation, not on anti-coagulants due to fall history, and alcohol abuse/dependence and depression. Patient being seen for alcohol withdrawal and tachycardia in the setting of atrial fibrillation with RVR. Patient was on Cardizem drip, we have changed this to p.o. Cardizem and will continue to monitor the patient's heart rate. Overnight, the patient was in atrial fibrillation and atrial flutter and tachycardic, but is improved this morning with heart rate in the 90s-100 range. He is still complaining of knee pain, but was unable to go down to the x-ray yesterday because of the drip. The patient's CIWA is approximately 8-10 this morning, but is difficult to completely assess as the patient is very focused on minimizing his pain while here and possibly overreporting. In the setting of constipation, heavy opioid use is not recommended, and tramadol should have no significant difference for the joint pain compared to high-dose opiates. He could be experiencing neuropathy, so Gabapentin may also help with pain control. Problems: 1. EtOH withdrawal 2. Atrial fibrillation with RVR 3. R Knee pain Plan: * Patient is now a full admission * Begin tapering ativan * Oxycodone 10 mg every 8 hours for knee pain * Gabapentin 100mg TID for possible neuropathy * Magnesium oxide p.o. for supplementation * Continue low-dose aspirin * X-ray right knee * Follow-up echo Code status: Full code Prophylaxis: Lovenox Labs: CBC and BEP Diet: Regular Problem List: 1. Alcohol withdrawal 2. Chest pain 3. Atrial fibrillation with RVR 4. H/O ETOH abuse Pain Ratin Pain Location: knee, chest, head, shoulder Pain Goal: Pain 4 or less Pain Plan: oxycodone 10mg q8 gabapentin 100mg tid Tomorrow's Labs & Rationales: CBC & BEP
--- NOTE | 2017-10-06 12:21 | PN- Att Addend ---
Attending Addendum Attending Brief Note Patient seen and examined, he was complaining of not feeling well. He was complaining of pain from his fibromyalgia. His legs are hurting too much. He has been switched to oral Cardizem and heart rate is in acceptable range. His CIWA scores are ranging between 8 and 13. Vital Signs Date Time Temp Pulse Resp B/P B/P Pulse O2 O2 Flow FiO2 Mean Ox Delivery Rate 10/06 0630 98.5 87 20 144/88 96 10/05 2245 98.7 117 20 158/86 98 Room Air 10/05 1456 97.5 68 20 130/80 97 on exam; aox3, nad. cv; s1, s2, rrr resp; clear abd; soft, nt, bs+ ext; no edema Laboratory Tests 10/06 609 Hematology CBC w Diff NO MAN DIFF REQ WBC (4.8 - 10.8 /CUMM) 8.3 RBC (4.70 - 6.10 /CUMM) 4.62 L Hgb (14.0 - 18.0 G/DL) 15.3 Hct (42 - 52 %) 44.7 MCV (80.0 - 94.0 FL) 96.7 H MCH (27.0 - 31.0 PG) 33.0 H MCHC (33.0 - 37.0 G/DL) 34.1 RDW (11.5 - 14.5 %) 15.6 H Plt Count (130 - 400 /CUMM) 180 MPV (7.4 - 10.4 FL) 8.9 Gran % (42.2 - 75.2 %) 65.8 Lymphocytes % (20.5 - 51.1 %) 18.0 L Monocytes % (1.7 - 9.3 %) 14.2 H Eosinophils % (0 - 5 %) 1.5 Basophils % (0.0 - 2.0 %) 0.5 Absolute Granulocytes (1.4 - 6.5 /CUMM) 5.4 Absolute Lymphocytes (1.2 - 3.4 /CUMM) 1.5 Absolute Monocytes (0.10 - 0.60 /CUMM) 1.2 H Absolute Eosinophils (0.0 - 0.7 /CUMM) 0.1 Absolute Basophils (0.0 - 0.2 /CUMM) 0 A/P; 57 y/o M with pmh sig for atrial fibrillation not on anticoagulation due to falls, medication noncompliance, EtOH abuse, hypertension, and depression admitted with atrial fibrillation with rapid ventricular response, alcohol intoxication and complains of pain everywhere especially in bilateral lower extremities and his right knee. Agree with getting a right knee x-ray. Continue oxycodone at present dose. Check CT BMP, patient had been prescribed oxycodone and tramadol by different providers. Would recommend adding Neurontin 100 mg 3 times daily for possible neuropathy/fibromyalgia pain. Continue Ativan taper. Please follow further cardiology recommendations. DVT px; Lovenox.
--- NOTE | 2017-10-06 14:45 | RADIOLOGY REPORT ---
EXAMINATION: XR KNEE, RIGHT CLINICAL INFORMATION: Right knee pain. Status post fall. COMPARISON: None TECHNIQUE: Four views of the right knee. FINDINGS: The bony alignment is intact. The cortices are intact. No joint effusion is seen. Enthesopathy is noted at the insertional site of the quadriceps tendon to the patella. No focal osseous abnormalities. IMPRESSION: No radiographic evidence of any acute fracture, subluxation or dislocation is seen. Mild enthesopathy at the insertional site of the quadriceps tendon to the patella.
[2017-10-06 15:02] VITALS: BP 126/80
--- NOTE | 2017-10-06 15:34 | Patient Discharge Instructions ---
Discharge Instructions General Discharge Information You were seen/treated for: Alcohol withdrawal Atrial fibrillation Watch for these problems: If you experience severe headache, nausea/vomiting, agitation/anxiety, audio/ visual/touch hallucinations, palpitations, chest pain, shortness of breath please go to your nearest emergency department. Special Instructions: Please follow-up with your spool fixer and primary care doctor about your recent hospitalization. Diet Continue normal diet: Yes Recommended Diet: Regular Activity Full Activity/No Limits: No Activity Self Limited: Yes Acute Coronary Syndrome Inclusion Criteria At DC or during hospital stay patient has or had the following: Discharge Core Measures Meds if any: Prescribed or Continued at Discharge Meds if any: NOT Prescribed or Continued at Discharge Congestive Heart Failure Inclusion Criteria At DC or during hospital stay patient has or had the following: Discharge Core Measures Meds if any: Prescribed or Continued at Discharge Meds if any: NOT Prescribed or Continued at Discharge Cerebrovascular accident Inclusion Criteria At DC or during hospital stay patient has or had the following: CVA/TIA Diagnosis No Discharge Core Measures Meds if any: Prescribed or Continued at Discharge Meds if any: NOT Prescribed or Continued at Discharge Venous thromboembolism Discharge Core Measures - Per Current guidelines, there needs to be overlap - treatment for the first 5 days of Warfarin therapy. - If discharged on Warfarin prior to 5 days of - overlap therapy, the patient will need to be - assessed for post discharge needs including - *Post discharge parental anticoagulation - *Warfarin and/or parental anticoagulation education - *Follow up date to check INR post discharge Meds if any: Prescribed or Continued at Discharge Note: Overlap Therapy is Warfarin and Anticoagulant Meds if any: NOT Prescribed or Continued at Discharge
--- NOTE | 2017-10-06 20:03 | ECHOCARDIOGRAM REPORT ---
NGA GUEVARA Age: 57 : 1960 Gender: M Exam Date: 10/05/2017 16:07 Exam Location: 1 [address] Ht (in): 76 Wt (lb): 225 BSA: 2.35 BP: 130 / 80 Ordering Physician: Shanell Younger MD Referring Physician: Ramu Gillespie MD Technologist: Tiffany Bass [facility] Room Number: 175 Indications: Afib/flutter Rhythm: Atrial fibrillation Technical Quality: Fair FINDINGS Left Ventricle Normal size left ventricle. Normal left ventricular ejection fraction visually estimated at >60%. No obvious regional wall motion abnormalities. Right Ventricle Normal right ventricular size and function. Right Atrium Normal right atrial size. Left Atrium Normal left atrial size. Mitral Valve Mitral valve thickened. Mild mitral regurgitation. Aortic Valve Diffuse thickening (sclerosis) of the aortic valve cusps without reduced excursion. No aortic stenosis. No aortic regurgitation. Tricuspid Valve Tricuspid valve not well visualized, grossly normal. Mild tricuspid regurgitation. No evidence of pulmonary hypertension. Pulmonic Valve Pulmonic valve not well visualized, grossly normal. Mild pulmonic regurgitation. Pericardium Small pericardial effusion. No echocardiographic findings to suggest a hemodynamically significant pericardial effusion. Great Vessels Normal size aortic root. CONCLUSIONS Normal size left ventricle. Normal left ventricular ejection fraction visually estimated at > 60%. No obvious regional wall motion abnormalities. Mild mitral regurgitation. Mild tricuspid regurgitation. Mild pulmonic regurgitation. Ramu Gillespie M.D. (Electronically Signed) Final Date: 06 October 2017 20:02 MEASUREMENTS (Male / Female) Normal Values 2D ECHO LV Diastolic Diameter PLAX 3.9 cm 4.2 - 5.9 / 3.9 - 5.3 cm LV Systolic Diameter PLAX 2.4 cm 2.1 - 4.0 cm LV Fractional Shortening PLAX 38.5 % 25 - 46 % LV Ejection Fraction 2D Teich 69.4 % IVS Diastolic Thickness 1.2 cm LVPW Diastolic Thickness 1.0 cm LV Relative Wall Thickness 0.6 RV Internal Dim ED PLAX 2.5 cm 1.9 - 3.8 cm LVOT Diameter 2.0 cm Aortic Root Diameter 2.9 cm LA Systolic Diameter LX 4.9 cm 3.0 - 4.0 / 2.7 - 3.8 cm LA Volume 42.0 cm 18 - 58 / 22 - 52 cm Ascending Aorta Diameter 3.6 cm DOPPLER AV Peak Velocity 129.0 cm/s AV Peak Gradient 6.7 mmHg AV Mean Velocity 95.8 cm/s AV Mean Gradient 4.0 mmHg AV Velocity Time Integral 23.8 cm LVOT Peak Velocity 128.0 cm/s LVOT Peak Gradient 6.6 mmHg LVOT Mean Velocity 82.6 cm/s LVOT Mean Gradient 3.0 mmHg LVOT Velocity Time Integral 22.6 cm LVOT Stroke Volume 71.0 cm AV Area Cont Eq vti 3.0 cm AV Area Cont Eq pk 3.1 cm MV Peak Velocity 105.0 cm/s MV Peak Gradient 4.4 mmHg MV Mean Velocity 57.3 cm/s MV Mean Gradient 2.0 mmHg Mitral E Point Velocity 108.0 cm/s MV PHT Velocity 109.0 cm/s MV Deceleration Rush 579.0 cm/s MV Pressure Half Time 56.5 ms MV Area PHT 3.9 cm MV Deceleration Time 224.0 ms TR Peak Velocity 217.0 cm/s TR Peak Gradient 18.8 mmHg Right Atrial Pressure 5.0 mmHg Pulmonary Artery Systolic Pressure 23.8 mmHg Right Ventricular Systolic Pressure 23.8 mmHg PV Peak Velocity 103.0 cm/s PV Peak Gradient 4.2 mmHg PV Mean Velocity 70.9 cm/s PV Mean Gradient 2.0 mmHg PV Velocity Time Integral 17.0 cm LV E' Lateral Velocity 4.8 cm/s Mitral E to LV E' Lateral Ratio 22.3 LV E' Septal Velocity 7.8 cm/s Mitral E to LV E' Septal Ratio 13.8
[2017-10-06 22:34] VITALS: BP 122/88
[2017-10-07 06:28] VITALS: BP 126/78
--- NOTE | 2017-10-07 06:34 | PN- Housestaff ---
David Masterson 10/07/17 0633: Subjective Follow-up For: EtOH withdrawal Atrial fibrillation Tele-Events Since Last Visit: Atrial fibrillation and atrial flutter, with rates 110-120s over night Subjective: Patient seen resting comfortably in the bed. He is a bit drowsy from the Ativan. He currently denies chest pain, shortness of breath, dizziness, has palpitations. He is currently complaining of knee pain, headache, but denies abdominal pain and reports that his shoulder pain has resolved. He reports some anxiety/restlessness overnight, but denies audio/visual/tactile disturbances. Review of Systems Constitutional: Denies: chills, fever, weakness. Cardiovascular: Reports: chest pain. Denies: edema, orthopena, palpitations, peripheral edema. Respiratory: Denies: cough, short of breath, wheezing. Gastrointestinal: Denies: abdominal pain, nausea, vomiting. Objective Last 24 Hrs of Vital Signs/I&O Vital Signs Date Time Temp Pulse Resp B/P B/P Pulse O2 O2 Flow FiO2 Mean Ox Delivery Rate 10/07 0628 98.0 75 18 126/78 98 Room Air 10/06 2234 98.3 86 18 122/88 96 Room Air 10/06 2154 Room Air 10/06 1502 98.1 75 20 126/80 96 Intake & Output 10/07 0800 10/07 0000 10/06 1600 Intake Total 660 220 800 Output Total Balance 660 220 800 Intake, Oral 660 220 800 Patient 98.174 kg Weight Weight Bed scale Measurement Method Physical Exam General Appearance: Alert, Oriented X3, Cooperative, No Acute Distress HEENT: Atraumatic, PERRLA, EOMI, Mucous Membr. moist/pink Neck: Supple, No JVD, No thryomegaly, +2 Carotid Pulse wo Bruit Cardiovascular: Normal S1, Normal S2, No Murmurs, tacyhcardic Lungs: Clear to Auscultation, Normal Air Movement Abdomen: Normal Bowel Sounds, Soft, No Tenderness Neurological: Normal Gait, Normal Speech, Strength at 5/5 X4 Ext Extremities: No Clubbing, No Cyanosis, No Edema Assessment/Plan Assessment: 57-year-old male with history of atrial fibrillation, not on anti-coagulants due to fall history, and alcohol abuse/dependence and depression. Patient being seen for alcohol withdrawal and tachycardia in the setting of atrial fibrillation with RVR. Patient was on Cardizem drip, we have changed this to p.o. Cardizem CD 360mg, but required a 5mg Cardizem push this afternoon as the patient was tachycardic into the 150's. Overnight, the patient was in atrial fibrillation and atrial flutter and tachycardic 110-120's. The knee x-ray showed mild enthesopathy at the insertion of the quadriceps tendon, further workup as outpatient. In the setting of constipation, heavy opioid use is not recommended, and tramadol should have no significant difference for the joint pain compared to high-dose opiates, but patient requesting oxycodone. He is possibly experiencing neuropathy, Gabapentin seems to be helping with pain control. Problems: 1. EtOH withdrawal 2. Atrial fibrillation with RVR 3. R Knee pain Plan: * Continue tapering ativan and CIWA protocol * Change Oxycodone to 10 mg every 6 hours for knee pain * Continue tramadol 50mg * Gabapentin increased to 200mg TID for possible neuropathy * Magnesium oxide p.o. as needed for supplementation to keep Mg > 2.0 * Continue low-dose aspirin * Added Metoprolol 12.5mg PO BID Code status: Full code Prophylaxis: Lovenox Labs: CBC and BEP Diet: Regular Problem List: 1. Alcohol withdrawal 2. Atrial fibrillation with RVR 3. Chest pain Pain Ratin Pain Location: knee, chest, headache, abdomen, shoulder Pain Goal: Pain 4 or less Pain Plan: per pathway Tomorrow's Labs & Rationales: cbc & BEP Dilip SHAH,Candy 10/07/17 1142: Attending MD Review Statement Attending Statement Attending MD Statement: examined this patient, discuss w/resident/PA/CONFERENCE INTERPRETER, agreed w/resident/PA/CONFERENCE INTERPRETER, reviewed EMR data (avail), discussed with nursing, discussed with case mgmt, reviewed images, amended to note Attending Assessment/Plan: Patient seen and examined, feels overall better today. Still has body pain from fibromyalgia. CIW scores are running low. Vital Signs Date Time Temp Pulse Resp B/P B/P Pulse O2 O2 Flow FiO2 Mean Ox Delivery Rate 10/07 0628 98.0 75 18 126/78 98 Room Air 10/06 2234 98.3 86 18 122/88 96 Room Air 10/06 2154 Room Air 10/06 1502 98.1 75 20 126/80 96 on exam; aox3, nad. cv; s1, s2, rrr resp; clear abd; soft, nt, bs+ ext; no edema Laboratory Tests 10/07 0744 Chemistry Sodium (137 - 145 mmol/L) 138 Potassium (3.5 - 5.1 mmol/L) 3.9 Chloride (98 - 107 mmol/L) 100 Carbon Dioxide (22 - 30 mmol/L) 30 Anion Gap (5 - 16) 8 BUN (9 - 20 mg/dL) 16 Creatinine (0.7 - 1.2 mg/dL) 0.9 Estimated GFR (>60 ml/min) > 60 BUN/Creatinine Ratio (7 - 25 %) 17.8 Hematology CBC w Diff NO MAN DIFF REQ WBC (4.8 - 10.8 /CUMM) 6.4 RBC (4.70 - 6.10 /CUMM) 4.67 L Hgb (14.0 - 18.0 G/DL) 15.3 Hct (42 - 52 %) 45.1 MCV (80.0 - 94.0 FL) 96.6 H MCH (27.0 - 31.0 PG) 32.8 H MCHC (33.0 - 37.0 G/DL) 33.9 RDW (11.5 - 14.5 %) 15.5 H Plt Count (130 - 400 /CUMM) 169 MPV (7.4 - 10.4 FL) 9.2 Gran % (42.2 - 75.2 %) 57.0 Lymphocytes % (20.5 - 51.1 %) 26.2 Monocytes % (1.7 - 9.3 %) 12.6 H Eosinophils % (0 - 5 %) 3.2 Basophils % (0.0 - 2.0 %) 1.0 Absolute Granulocytes (1.4 - 6.5 /CUMM) 3.7 Absolute Lymphocytes (1.2 - 3.4 /CUMM) 1.7 Absolute Monocytes (0.10 - 0.60 /CUMM) 0.8 H Absolute Eosinophils (0.0 - 0.7 /CUMM) 0.2 Absolute Basophils (0.0 - 0.2 /CUMM) 0.1 A/P: 57 y/o M with pmh sig for atrial fibrillation not on anticoagulation due to falls, medication noncompliance, EtOH abuse, hypertension, and depression admitted with atrial fibrillation with rapid ventricular response, alcohol intoxication and chronic pain. We will increase the dose of gabapentin. Would also keep oxycodone at every 6 hours as needed. We will continue to taper Ativan. Heart rate is still not well controlled. Please discuss with emissions repair technician about med adjustments. Patient currently on 360 mg of Cardizem. Please make sure potassium is 4 out above and magnesium is 2 or above. DVT px: Lovenox.
[2017-10-07 08:47] LABS: ABSOLUTE BASOPHIL COUNT 0.1 /CUMM (0.0-0.2); ABSOLUTE EOSINOPHIL COUNT 0.2 /CUMM (0.0-0.7); ABSOLUTE GRANULOCYTE CT 3.7 /CUMM (1.4-6.5); ABSOLUTE LYMPH COUNT 1.7 /CUMM (1.2-3.4); ABSOLUTE MONOCYTE COUNT 0.8 /CUMM (0.10-0.60); EOSINOPHIL % 3.2 % (0-5); HEMATOCRIT 45.1 % (42-52); MEAN CORPUSCULAR HGB 32.8 PG (27.0-31.0); MEAN CORPUSCULAR HGB CONC 33.9 G/DL (33.0-37.0); MEAN CORPUSCULAR VOLUME 96.6 FL (80.0-94.0); MEAN PLATELET VOLUME 9.2 FL (7.4-10.4); PLATELET COUNT 169 /CUMM (130-400); RBC DISTRIBUTION WIDTH 15.5 % (11.5-14.5); RED BLOOD CELL CT 4.67 /CUMM (4.70-6.10); WHITE BLOOD CELL COUNT 6.4 /CUMM (4.8-10.8)
[2017-10-07 14:00] VITALS: BP 152/78
--- NOTE | 2017-10-07 15:05 | PN- Cardiology ---
Subjective Subjective: Patient notes occasional brief sharp pains in his chest. He is otherwise feeling mostly well no shortness of breath. Occasional palpitations. No diaphoresis. No nausea or vomiting Objective Vital Signs and I&Os Vital Signs Date Time Temp Pulse Resp B/P B/P Pulse O2 O2 Flow FiO2 Mean Ox Delivery Rate 10/07 1525 124 134/80 10/07 1436 120 152/78 10/07 1400 97.7 101 20 152/78 97 Room Air 10/07 0628 98.0 75 18 126/78 98 Room Air 10/06 2234 98.3 86 18 122/88 96 Room Air 10/06 2154 Room Air Intake & Output 10/07 1600 10/07 0800 10/07 0000 10/06 1600 10/06 0800 10/06 0000 Intake Total 1500 660 220 800 675.5 690 Output Total Balance 1500 660 220 800 675.5 690 Intake, IV 15.5 30 Intake, Oral 1500 660 220 800 660 660 Patient 216 lb 255 lb Weight Weight Bed scale Measurement Method Physical Exam: Gen: NAD HEENT: normal Lungs: clear to auscultation, normal resp. effort Heart: irreg irreg, S1, S2, no murmurs Abdomen: Soft, nontender, no masses Extremities: No clubbing, cyanosis, or edema. Neuro: Alert and oriented x 3, cranial nerves intact Current Medications: Current Medications Sig/Moshe Start time Last Medication Dose Route Stop Time Status Admin Acetaminophen 650 MG .STK-MED ONE 10/07 0111 DC PO 10/07 0112 Acetaminophen 650 MG Q6P PRN 10/05 0130 AC 10/07 PO 0204 Aspirin 81 MG DAILY 10/06 09 10/07 PO 0847 Diltiazem HCl 5 MG ONCE ONE 10/07 1430 DC 10/07 IV 10/07 1431 1436 Diltiazem HCl 360 MG DAILY 10/06 1318 AC 10/07 PO 0847 Docusate Sodium 100 MG DAILY NEEDED PRN 10/06 0915 AC PO Enoxaparin Sodium 40 MG DAILY 10/05 09 AC 10/07 SC 0848 Folic Acid 1 MG DAILY 10/05 09 AC 10/07 PO 0846 Gabapentin 200 MG TID 10/07 1400 AC 10/07 PO 1315 Gabapentin 100 MG TID 10/06 1056 DC 10/07 PO 1305 Lidocaine 1 PAT DAILY NEEDED PRN 10/05 2200 [facility] Lorazepam 1 MG Q8 10/07 1400 AC 10/07 PO 1305 Lorazepam 1.5 MG Q8 10/06 1400 DC 10/07 PO 0708 Lorazepam 0 Q1P PRN 10/05 0300 10/07 IV 1706 Metoprolol Tartrate 12.5 MG BID 10/07 1500 AC 10/07 PO 1525 Multivitamins 1 TAB DAILY 10/05 0900 AC 10/07 PO 0847 Oxycodone HCl 10 MG Q6P PRN 10/07 1315 AC 10/07 PO 1523 Oxycodone HCl 10 MG Q8 PRN 10/05 1015 DC 10/07 PO 0934 Patient Medication 1 ED ONE ONE 10/07 1430 SC 10/07 Teaching ED 10/07 1431 1435 Senna/Docusate Sodium 1 TAB BID 10/06 0910 10/07 PO 0847 Thiamine HCl 100 MG DAILY 10/05 0900 AC 10/07 PO 0847 Trimethobenzamide HCl 200 MG TID PRN 10/05 0215 10/05 IM 2239 Results Last 48 Hrs of Labs/Mics: Laboratory Tests 10/07/17 0744: Anion Gap 8, Estimated GFR > 60, BUN/Creatinine Ratio 17.8, Magnesium 1.8, CBC w Diff NO MAN DIFF REQ, RBC 4.67 L, MCV 96.6 H, MCH 32.8 H, MCHC 33.9, RDW 15.5 H, MPV 9.2, Gran % 57.0, Lymphocytes % 26.2, Monocytes % 12.6 H, Eosinophils % 3.2, Basophils % 1.0, Absolute Granulocytes 3.7, Absolute Lymphocytes 1.7, Absolute Monocytes 0.8 H, Absolute Eosinophils 0.2, Absolute Basophils 0.1 10/06/17 0610: CBC w Diff NO MAN DIFF REQ, RBC 4.62 L, MCV 96.7 H, MCH 33.0 H, MCHC 34.1, RDW 15.6 H, MPV 8.9, Gran % 65.8, Lymphocytes % 18.0 L, Monocytes % 14.2 H, Eosinophils % 1.5, Basophils % 0.5, Absolute Granulocytes 5.4, Absolute Lymphocytes 1.5, Absolute Monocytes 1.2 H, Absolute Eosinophils 0.1, Absolute Basophils 0 Recent Imaging Studies: Echocardiogram: Normal size left ventricle. Normal left ventricular ejection fraction visually estimated at > 60%. No obvious regional wall motion abnormalities. Mild mitral regurgitation. Mild tricuspid regurgitation. Mild pulmonic regurgitation. Assessment/Plan Assessment/Plan Assessment: 1. Atrial fibrillation, rate under control 2. Frequent falls 3. Alcohol abuse Plan: * Continue Cardizem CD 360 mg p.o. daily * Add metoprolol 12.5 mg p.o. twice daily for additional rate control * Echocardiogram pending * Continue aspirin. Anticoagulation is contraindicated because of frequent falls * Follow up 1 week after discharge Continue telemetry? Yes
--- NOTE | 2017-10-07 15:44 | Discharge Summary ---
Visit Information Visit Dates Admission Date: 10/05/17 Discharge Date: 10/10/17 Hospital Course Course Attending Physician: Teto Michelle MD Primary Care Physician: Patient Has No Primary Care Dr Hospital Course: 57-year-old man with past medical history of atrial fibrillation not on anticoagulation due to falls, medication noncompliance, EtOH abuse, hypertension , and depression seen for evaluation of exertional shortness of breath, chest pain, and right knee pain. Patient reports that he was crossing the road this morning when his right knee "buckled" causing him to fall to the ground. He reports that he has had severe knee pain ever since prompting him to come to the [place] ED. Over the past several days he has been drinking reportedly 3-4 glasses of wine and "partied hard". During this time he had progressively worsening shortness of breath and admits that he has not been taking his medications. Today he developed chest pain that has been progressively worsening. In the ED patient was found to be in atrial fibrillation with rapid ventricular response for which he was given 2 pushes of intravenous Cardizem 10 mg. His chest pain improved after receiving those medications but he continues to complain of severe right knee pain and is demanding intravenous morphine. 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 Vidal and the [facility]. Medications at Discharge Discharge Medications: Continue taking these medications: Duloxetine HCl (Duloxetine HCl) 60 MG CAPSULE. 1 Capsule ORAL DAILY Qty = 30 Comments: Last Taken: 10/10/17 Time: 9:00 AM Start taking the following new medications: Metoprolol Tartrate (Metoprolol Tartrate) 25 MG TABLET 1 Tablet ORAL TWICE DAILY Qty = 60 No Refills Instructions: . Comments: Last Taken: 10/10/17 Time: 10:30 AM Gabapentin (Gabapentin) 100 MG CAPSULE 2 Tablet ORAL THREE TIMES DAILY Qty = 120 No Refills Comments: Last Taken: 10/10/17 Time: 9:00 AM Oxycodone HCl (Oxycodone HCl) 10 MG TABLET 10 Milligram ORAL EVERY 8 HOURS as needed for PAIN SCALE 7-10 (SEVERE) Qty = 12 No Refills Instructions: . Comments: Last Taken: 10/10/17 Time: 6:30 AM Aspirin (Aspirin*) 81 MG TAB.CHEW 81 Milligram ORAL DAILY Qty = 30 No Refills Instructions: . Comments: Last Taken: 10/10/17 Time: 9:00 AM diltiaZEM HCl (Diltiazem 24HR Cd) 360 MG CAP.ER.24H 1 Tablet ORAL DAILY Qty = 30 No Refills Instructions: . Comments: Last Taken: 10/10/17 Time: 9:00 AM Copies To: Marcy SHAH,Demetrio Gillespie MD,Ramu Charles MD Review Statement Documenting Attending: Teto Michelle MD Other Findings: Medically stable to be discharged
[2017-10-07 21:48] VITALS: BP 126/78
[2017-10-07 22:00] VITALS: BP 118/80
[2017-10-08 04:00] VITALS: BP 118/80
[2017-10-08 06:56] VITALS: BP 128/76
--- NOTE | 2017-10-08 08:18 | PN- Housestaff ---
See Addendum Subjective Follow-up For: EtOH withdrawal Atrial fibrillation Subjective: Patient seen resting comfortably in the bed. Complains of some drowsiness, secondary to the Ativan. Patient also endorses a headache, some shortness of breath and reproducible chest pain with palpation on the right. He is not complaining of knee pain, and bending the knee freely in the bed. He expresses interest in his discharge date and the plan, as he had heard he will be staying through the weekend. Patient complains that he has been unsteady going to the bathroom, again likely secondary to Ativan. Review of Systems Constitutional: Denies: chills, fever, weakness. Cardiovascular: Denies: edema, palpitations, peripheral edema. Respiratory: Reports: cough, short of breath. Gastrointestinal: Denies: abdominal pain, nausea, vomiting. Neurological/Psychological: Reports: anxiety, headache. Objective Last 24 Hrs of Vital Signs/I&O Vital Signs Date Time Temp Pulse Resp B/P B/P Pulse O2 O2 Flow FiO2 Mean Ox Delivery Rate 10/08 0656 97.7 76 18 128/76 98 Room Air 10/08 0400 97.8 58 18 118/80 10/07 2200 98.0 60 18 118/80 10/07 2148 97.8 18 18 126/78 96 Room Air 10/07 2117 98.0 62 18 118/80 10/07 1525 124 134/80 10/07 1436 120 152/78 10/07 1400 97.7 101 20 152/78 97 Room Air Intake & Output 10/08 1600 10/08 0800 10/08 0000 Intake Total 200 Output Total 300 Balance 200 -300 Intake, Oral 200 Number 1 Bowel Movements Output, Urine 300 Patient 94.489 kg Weight Weight Bed scale Measurement Method Physical Exam General Appearance: Alert, Oriented X3, Cooperative, No Acute Distress HEENT: Atraumatic, PERRLA, EOMI, Mucous Membr. moist/pink Neck: Supple, No JVD, No thryomegaly, +2 Carotid Pulse wo Bruit Cardiovascular: Regular Rate, Normal S1, Normal S2 Lungs: Clear to Auscultation Abdomen: Normal Bowel Sounds, Soft, No Tenderness Neurological: Normal Gait, Normal Speech, Strength at 5/5 X4 Ext Current Medications: Current Medications Sig/Moshe Start time Last Medication Dose Route Stop Time Status Admin Acetaminophen 650 MG Q6P PRN 10/05 0130 AC 10/07 PO 0204 Aspirin 81 MG DAILY 10/06 0900 AC 10/07 PO 0847 Calcium Carbonate 500 MG ONCE ONE 10/07 2100 DC 10/07 PO 10/07 2101 2107 Diltiazem HCl 5 MG ONCE ONE 10/07 1430 DC 10/07 IV 10/07 1431 1436 Diltiazem HCl 360 MG DAILY 10/06 1318 AC 10/07 PO 0847 Docusate Sodium 100 MG DAILY NEEDED PRN 10/06 0915 PO Enoxaparin Sodium 40 MG DAILY 10/05 0900 AC 10/07 SC 0848 Folic Acid 1 MG DAILY 10/05 0900 AC 10/07 PO 0846 Gabapentin 200 MG TID 10/07 1400 AC 10/07 PO 2117 Gabapentin 100 MG TID 10/06 1056 DC 10/07 PO 1305 Lidocaine 1 PAT DAILY NEEDED PRN 10/05 2200 TOP Lorazepam 1 MG Q8 10/07 1400 AC 10/08 PO 0620 Lorazepam 1.5 MG Q8 10/06 1400 DC 10/07 PO 0708 Lorazepam 0 Q1P PRN 10/05 0300 10/07 IV 1706 Metoprolol Tartrate 12.5 MG BID 10/07 1500 AC 10/07 PO 2117 Metoprolol Tartrate 25 MG .STK-MED ONE 10/07 1457 DC PO 10/07 1458 Multivitamins 1 TAB DAILY 10/05 0900 10/07 PO 0847 Omeprazole 40 MG DAILY 10/07 2100 AC 10/08 PO 0706 Oxycodone HCl 10 MG Q6P PRN 10/07 1315 10/08 PO 0318 Oxycodone HCl 10 MG Q8 PRN 10/05 1015 DC 10/07 PO 0934 Patient Medication 1 ED ONE ONE 10/07 1430 DC 10/07 Teaching ED 10/07 1431 1435 Senna/Docusate Sodium 1 TAB BID 10/06 0910 10/07 PO 2118 Thiamine HCl 100 MG DAILY 10/05 0900 10/07 PO 0847 Trimethobenzamide HCl 200 MG TID PRN 10/05 0215 AC 10/05 IM 2239 Last 24 Hrs of Lab/Dion Results Last 24 Hrs of Labs/Mics: Laboratory Tests 10/08/17 0655: Sodium Pending, Potassium Pending, Chloride Pending, Carbon Dioxide Pending, Anion Gap Pending, BUN Pending, Creatinine Pending, BUN/Creatinine Ratio Pending , Magnesium Pending Assessment/Plan Assessment: 57-year-old male with history of atrial fibrillation, not on anti-coagulants due to fall history, and alcohol abuse/dependence and depression. Patient being seen for alcohol withdrawal and tachycardia in the setting of atrial fibrillation with RVR. Patient on Cardizem CD 360 mg p.o. daily. Problems: 1. EtOH withdrawal 2. Atrial fibrillation with RVR 3. R Knee pain Plan: * Continue tapering ativan and CIWA protocol * Oxycodone to 10 mg every 6 hours for knee pain * Continue tramadol 50mg * Gabapentin continued at 200mg TID for possible neuropathy * Magnesium oxide p.o. as needed for supplementation to keep Mg > 2.0 * Continue low-dose aspirin * Added Metoprolol 12.5mg PO BID Code status: Full code Prophylaxis: Lovenox Labs: CBC and BEP Diet: Regular Problem List: 1. Alcohol withdrawal 2. Atrial fibrillation with RVR 3. H/O ETOH abuse 4. Fall Pain Ratin Pain Location: headache Pain Goal: Pain 4 or less Pain Plan: per pathway Tomorrow's Labs & Rationales: see a/p
[2017-10-08 14:37] VITALS: BP 122/82
[2017-10-08 22:31] VITALS: BP 120/80
[2017-10-09 06:57] VITALS: BP 100/72
--- NOTE | 2017-10-09 09:02 | PN- Housestaff ---
Jennifer Gamboa 10/09/17 0902: Subjective Follow-up For: ETOH withdrawal, freq falls, a fib with RVR-now rate controlled Complaints: mild headache Tele-Events Since Last Visit: a fib. HR stable Subjective: Pt seen and examined in bed. NAD, no complaints/ no acute evnts overnight Review of Systems Constitutional: Reports: see HPI. Objective Last 24 Hrs of Vital Signs/I&O Vital Signs Date Time Temp Pulse Resp B/P B/P Pulse O2 O2 Flow FiO2 Mean Ox Delivery Rate 10/10 1043 100 122/80 10/10 1000 100 20 10/10 0840 89 102/60 10/10 0800 84 20 100/62 10/10 0800 97 Room Air 10/10 0545 97.4 71 18 98/62 97 10/09 2201 97.5 66 18 124/86 97 10/09 2002 94 10/09 1410 98.1 90 18 120/90 96 Room Air Intake & Output 10/10 1600 10/10 0800 10/10 0000 Intake Total 50 150 Output Total Balance 50 150 Intake, Oral 50 150 Patient 213 lb 213 lb Weight Weight Bed scale Measurement Method Physical Exam General Appearance: Alert, Oriented X3, Cooperative, No Acute Distress Neck: Supple Cardiovascular: Regular Rate, Normal S1, Normal S2, No Murmurs Lungs: Clear to Auscultation Abdomen: Soft, No Tenderness Neurological: Normal Speech Extremities: No Clubbing, No Cyanosis, No Edema Assessment/Plan Assessment: 57-year-old male with history of atrial fibrillation, not on anti-coagulants due to fall history, and alcohol abuse/dependence and depression. Patient being seen for alcohol withdrawal and tachycardia in the setting of atrial fibrillation with RVR. Patient on Cardizem CD 360 mg p.o. daily. Problems: 1. EtOH withdrawal 2. Atrial fibrillation with RVR 3. Right Knee pain Plan: * Pt is in afib, rate controlled. he is not anti-coagulated to freq fall history * For possible residential anticoagulation, we will follow cardiology recs * Continue tapering ativan and CIWA protocol * Dilan. Oxycodone 10mg Q6, tramadol 50mg, Gabapentin 200 mg, aspirin, metoprolol 12.5 bid po. Code status: Full code Prophylaxis: Lovenox Labs: CBC and BEP Diet: Regular Problem List: 1. Fall 2. Alcohol withdrawal 3. Atrial fibrillation with RVR Pain Ratin Pain Location: headache Pain Goal: Pain 4 or less Pain Plan: follow pain pathway Tomorrow's Labs & Rationales: cbc, bep Yonas SHAH,Amir 10/09/17 0957: Attending MD Review Statement Attending Statement Attending MD Statement: examined this patient, discuss w/resident/PA/ASSORTMENT PLANNER, agreed w/resident/PA/ASSORTMENT PLANNER, reviewed EMR data (avail), discussed with nursing Attending Assessment/Plan: Pt was seen and evaluated. No overnight issues, reprots feeling week and unstable gait. --PT eval --need SW consult as pt is trying to relocate --appreciate cards eval --cont other meds --rest of the plan as per resident's note
--- NOTE | 2017-10-09 12:05 | PN- Cardiology ---
Subjective Subjective: Patient still feels that his legs are weak. Denies chest pain, dyspnea, or palpitations. Objective Vital Signs and I&Os Vital Signs Date Time Temp Pulse Resp B/P B/P Pulse O2 O2 Flow FiO2 Mean Ox Delivery Rate 10/09 0909 78 138/90 10/09 0657 97.6 60 18 100/72 96 Room Air 10/08 2231 98.2 74 18 120/80 95 Room Air 10/08 2031 80 124/80 10/08 1437 97.9 98 18 122/82 93 Room Air Intake & Output 10/09 1600 10/09 0810/09 0000 10/08 1600 10/08 0810/08 0000 Intake Total 120 240 700 200 Output Total 300 Balance 120 240 700 200 -300 Intake, IV 0 Intake, Oral 120 240 700 200 Number 1 1 1 Bowel Movements Output, Urine 300 Patient 214 lb 208 lb Weight Weight Bed scale Bed scale Measurement Method Physical Exam: General: no apparent distress. Alert. Eyes: No obvious scleral icterus. HEENT: No jugular venous distention or abnormal jugular venous pulsations. Cardiovascular: Irregular Respiratory: Lungs clear to auscultation bilaterally. Abdomen: Soft, nontender with no guarding or rebound tenderness. Musculoskeletal: No clubbing or cyanosis noted Skin: warm Current Medications: Current Medications Sig/Moshe Start time Last Medication Dose Route Stop Time Status Admin Acetaminophen 650 MG Q6P PRN 10/05 0130 AC 10/07 PO 0204 Aspirin 81 MG DAILY 10/06 0900 AC 10/09 PO 0910 Diltiazem HCl 360 MG DAILY 10/06 1318 AC 10/09 PO 0908 Docusate Sodium 100 MG DAILY NEEDED PRN 10/06 0915 AC PO Duloxetine HCl 60 MG DAILY 10/08 1245 AC 10/09 PO 0908 Enoxaparin Sodium 40 MG DAILY 10/05 0900 AC 10/09 SC 0911 Folic Acid 1 MG DAILY 10/05 0900 AC 10/09 PO 0908 Gabapentin 200 MG TID 10/07 1400 AC 10/09 PO 0909 Lidocaine 1 PAT DAILY NEEDED PRN 10/05 2200 AC TOP Lorazepam 1 MG Q12 10/08 2100 AC 10/09 PO 0916 Lorazepam 1 MG Q8 10/07 1400 DC 10/08 PO 1330 Lorazepam 0 Q1P PRN 10/05 0300 AC 07/27 IV 1706 Metoprolol Tartrate 12.5 MG BID 10/07 1500 AC 10/09 PO 0909 Multivitamins 1 TAB DAILY 10/05 0900 AC 10/09 PO 0910 Nicotine 14 MG DAILY 10/08 1652 AC 10/09 TOP 0911 Omeprazole 40 MG DAILY AC 10/07 2100 AC 10/09 PO 0428 Oxycodone HCl 10 MG Q6P PRN 10/07 1315 AC 10/09 PO 1021 Senna/Docusate Sodium 1 TAB BID 10/06 0910 AC 10/09 PO 0910 Thiamine HCl 100 MG DAILY 10/05 0900 AC 10/09 PO 0910 Tramadol HCl 50 MG DAILY NEEDED PRN 10/08 1915 AC 10/08 PO 2031 Trimethobenzamide HCl 200 MG TID PRN 10/05 0215 AC 10/05 IM 2239 Results Last 48 Hrs of Labs/Mics: Laboratory Tests 10/09/17 0655: Anion Gap 11, Estimated GFR > 60, BUN/Creatinine Ratio 15.0, Magnesium 1.8 10/08/17 0655: Anion Gap 10, Estimated GFR > 60, BUN/Creatinine Ratio 17.5, Magnesium 1.7 Recent Imaging Studies: Telemetry tracings were personally reviewed and show atrial fibrillation with grossly controlled ventricular response rate Assessment/Plan Assessment/Plan 1. Atrial fibrillation, rate under control 2. Frequent falls 3. Alcohol abuse The patient remains in atrial fibrillation with controlled ventricular response rate. Remains hemodynamically stable. He is not being anticoagulated due to his frequent fall history. Michael Ortiz MD [facility] Continue telemetry? No
[2017-10-09 14:10] VITALS: BP 120/90
[2017-10-09 22:01] VITALS: BP 124/86
[2017-10-10 05:45] VITALS: BP 98/62
--- NOTE | 2017-10-10 07:10 | PN- Housestaff ---
See Addendum Subjective Follow-up For: EtOH withdrawal Atrial fibrillation Tele-Events Since Last Visit: Atrial flutter overnight with rates 55-62 Subjective: Patient seen resting comfortably in the bed. In no acute distress. He currently complains of palpitations, as well as chest pain in the right side reproducible on palpation. He denies shortness of breath, dizziness or headache, but complains that he feels unsteady when walking. Patient also complains of feelings of hopelessness, difficulty sleeping and feeling that "it seems like the world descending" minutes crying more frequently overnight, but clearly states that he denies suicidal ideation or intent to harm himself. Patient states that he feels discouraged about his situation, and inability to find housing. Review of Systems Constitutional: Denies: chills, diaphoresis, fever. Objective Last 24 Hrs of Vital Signs/I&O Vital Signs Date Time Temp Pulse Resp B/P B/P Pulse O2 O2 Flow FiO2 Mean Ox Delivery Rate 10/10 0545 97.4 71 18 98/62 97 10/09 2201 97.5 66 18 124/86 97 10/09 2002 94 10/09 1410 98.1 90 18 120/90 96 Room Air 10/09 0909 78 138/90 Intake & Output 10/10 0800 10/10 0000 10/09 1600 Intake Total 150 Output Total Balance 150 Intake, Oral 150 Number 1 Bowel Movements Patient 96.757 kg Weight Weight Bed scale Measurement Method Physical Exam General Appearance: Alert, Oriented X3, Cooperative, No Acute Distress HEENT: Atraumatic, PERRLA, EOMI, Mucous Membr. moist/pink Neck: Supple, No JVD, No thryomegaly Cardiovascular: Normal S1, Normal S2, No Murmurs, irregular rhythm Lungs: Clear to Auscultation, Normal Air Movement Abdomen: Normal Bowel Sounds, Soft, No Tenderness Neurological: Normal Gait, Normal Speech, Strength at 5/5 X4 Ext Extremities: No Clubbing, No Cyanosis, No Edema, Normal Pulses, No Tenderness/ Swelling Current Medications: Current Medications Sig/Moshe Start time Last Medication Dose Route Stop Time Status Admin Acetaminophen 650 MG Q6P PRN 10/05 0130 AC 10/07 PO 0204 Aspirin 81 MG DAILY 10/06 0900 AC 10/09 PO 0910 Diltiazem HCl 360 MG DAILY 10/06 1318 AC 10/09 PO 0908 Docusate Sodium 100 MG DAILY NEEDED PRN 10/06 0915 AC PO Duloxetine HCl 60 MG DAILY 10/08 1245 AC 10/09 PO 0908 Enoxaparin Sodium 40 MG DAILY 10/05 0900 AC 10/09 SC 0911 Folic Acid 1 MG DAILY 10/05 0900 AC 10/09 PO 0908 Gabapentin 200 MG TID 10/07 1400 AC 10/09 PO 2001 Lidocaine 1 PAT DAILY NEEDED PRN 10/05 2200 AC TOP Lorazepam 1 MG Q12 10/08 2100 AC 10/09 PO 2002 Lorazepam 0 Q1P PRN 10/05 0300 AC 10/07 IV 1706 Metoprolol Tartrate 12.5 MG BID 10/07 1500 AC 10/09 PO 2001 Multivitamins 1 TAB DAILY 10/05 0900 AC 10/09 PO 0910 Nicotine 14 MG DAILY 10/08 1652 AC 10/09 TOP 0911 Omeprazole 40 MG DAILY AC 10/07 2100 AC 10/10 PO 0634 Oxycodone HCl 10 MG Q6P PRN 10/07 1315 AC 10/10 PO 0639 Senna/Docusate Sodium 1 TAB BID 10/06 0910 AC 10/09 PO 2001 Thiamine HCl 100 MG DAILY 10/05 0900 AC 10/09 PO 0910 Tramadol HCl 50 MG ONCE ONE 10/10 0315 DC 10/10 PO 10/10 0316 0330 Tramadol HCl 50 MG DAILY NEEDED PRN 10/08 1915 DC 10/09 PO 2002 Trimethobenzamide HCl 200 MG TID PRN 10/05 0215 AC 10/05 IM 2239 Assessment/Plan Assessment: 57-year-old male with history of atrial fibrillation, not on anti-coagulants due to fall history, and alcohol abuse/dependence and depression. Patient being seen for alcohol withdrawal and tachycardia in the setting of atrial fibrillation with RVR. Patient on Cardizem CD 360 mg p.o. daily. The patient Problems: 1. EtOH withdrawal 2. Atrial fibrillation with RVR 3. R Knee pain Plan: * protective services officer consult * Outpatient referral for psychiatry * Ativan changed to 0.5 mg every 12 hours * Oxycodone to 10 mg every 6 hours for knee pain * Gabapentin continued at 200mg TID for possible neuropathy * Magnesium oxide p.o. as needed for supplementation to keep Mg > 2.0 * Continue low-dose aspirin * Continue metoprolol 12.5mg PO BID Code status: Full code Prophylaxis: Lovenox Labs: CBC and BEP Diet: Regular Problem List: 1. Alcohol withdrawal 2. Chest pain 3. Atrial fibrillation with RVR Pain Ratin Pain Location: Right knee Pain Goal: Pain 4 or less Pain Plan: Per pathway Tomorrow's Labs & Rationales: None
[2017-10-10] MEDS ORDERED: DILTIAZEM 24HR180 M1 PO (07:30)
[2017-10-10] MEDS ORDERED: ASPIRIN81 M4 PO ×2 (07:30→11:45)
[2017-10-10] MEDS ORDERED: METOPROLOL TART25 M1 PO ×2 (07:30→10:59)
[2017-10-10] MEDS ORDERED: GABAPENTIN100 M2 PO ×2 (07:30→10:59)
[2017-10-10] MEDS ORDERED: OXYCODONE HCL10 M2 PO ×2 (07:31→11:45)
[2017-10-10 08:00] VITALS: BP 100/62
[2017-10-10 08:06] LABS: ABSOLUTE BASOPHIL COUNT 0.1 /CUMM (0.0-0.2); ABSOLUTE EOSINOPHIL COUNT 0.3 /CUMM (0.0-0.7); ABSOLUTE GRANULOCYTE CT 5.2 /CUMM (1.4-6.5); ABSOLUTE LYMPH COUNT 1.8 /CUMM (1.2-3.4); ABSOLUTE MONOCYTE COUNT 0.7 /CUMM (0.10-0.60); BASOPHIL % 0.8 % (0.0-2.0); EOSINOPHIL % 3.5 % (0-5); GRANULOCYTE % 64.1 % (42.2-75.2); MEAN CORPUSCULAR HGB 32.8 PG (27.0-31.0); MEAN CORPUSCULAR HGB CONC 33.8 G/DL (33.0-37.0); MEAN CORPUSCULAR VOLUME 97.1 FL (80.0-94.0); MEAN PLATELET VOLUME 9.5 FL (7.4-10.4); PLATELET COUNT 191 /CUMM (130-400); RBC DISTRIBUTION WIDTH 15.8 % (11.5-14.5); RED BLOOD CELL CT 4.53 /CUMM (4.70-6.10); WHITE BLOOD CELL COUNT 8.1 /CUMM (4.8-10.8)
[2017-10-10] MEDS ORDERED: DILTIAZEM 24HR360 M1 PO ×2 (08:39→11:45)
[2017-10-10] MEDS ORDERED: ATIVAN0.5 M1 PO ×2 (09:21→10:59)
--- NOTE | 2017-10-10 09:39 | PN- Cardiology ---
Subjective Subjective: No chest pain. No palpitations. No shortness of breath. Ventricular rate is under control. Objective Vital Signs and I&Os Vital Signs Date Time Temp Pulse Resp B/P B/P Pulse O2 O2 Flow FiO2 Mean Ox Delivery Rate 10/10 0840 89 102/60 10/10 0800 84 20 100/62 10/10 0800 97 Room Air 10/10 0545 97.4 71 18 98/62 97 10/09 2201 97.5 66 18 124/86 97 10/09 2002 94 10/09 1410 98.1 90 18 120/90 96 Room Air Intake & Output 10/10 1600 10/10 0800 10/10 0000 10/09 1600 10/09 0810/09 0000 Intake Total 50 150 120 240 Output Total Balance 50 150 120 240 Intake, Oral 50 150 120 240 Number 1 Bowel Movements Patient 213 lb 214 lb Weight Weight Bed scale Bed scale Measurement Method Physical Exam: Gen: NAD HEENT: normal Lungs: clear to auscultation, normal resp. effort Heart: irreg irreg, S1, S2, no murmurs Abdomen: Soft, nontender, no masses Extremities: No clubbing, cyanosis, or edema. Neuro: Alert and oriented x 3, cranial nerves intact Current Medications: Current Medications Sig/Moshe Start time Last Medication Dose Route Stop Time Status Admin Acetaminophen 650 MG Q6P PRN 10/05 0130 AC 10/07 PO 0204 Aspirin 81 MG DAILY 10/06 09 AC 10/10 PO 0840 Diltiazem HCl 360 MG DAILY 10/06 1318 AC 10/10 PO 0840 Docusate Sodium 100 MG DAILY NEEDED PRN 10/06 0915 AC PO Duloxetine HCl 60 MG DAILY 10/08 1245 AC 10/10 PO 0840 Enoxaparin Sodium 40 MG DAILY 10/05 0900 AC 10/10 SC 0839 Folic Acid 1 MG DAILY 10/05 0900 AC 10/10 PO 0840 Gabapentin 200 MG TID 10/07 1400 AC 10/10 PO 0840 Lidocaine 1 PAT DAILY NEEDED PRN 10/05 2200 AC TOP Lorazepam 0.5 MG Q12 10/10 0900 AC 10/10 PO 10/15 2058 0839 Lorazepam 1 MG Q12 10/08 2100 DC 10/09 PO 2002 Lorazepam 0 Q1P PRN 10/05 0300 AC 10/07 IV 1706 Metoprolol Tartrate 12.5 MG BID 10/07 1500 AC 10/09 PO 2002 Multivitamins 1 TAB DAILY 10/05 0900 AC 10/10 PO 0840 Nicotine 14 MG DAILY 10/08 1652 AC 10/10 TOP 0840 Omeprazole 40 MG DAILY AC 10/07 2100 AC 10/10 PO 0634 Oxycodone HCl 10 MG Q6P PRN 10/07 1315 AC 10/10 PO 0639 Oxycodone/ 1 TAB ONCE ONE 10/10 0930 UNVr Acetaminophen PO 10/10 0931 Senna/Docusate Sodium 1 TAB BID 10/06 0910 AC 10/10 PO 0840 Thiamine HCl 100 MG DAILY 10/05 0900 AC 10/10 PO 0840 Tramadol HCl 50 MG ONCE ONE 10/10 0315 DC 10/10 PO 10/10 0316 0330 Tramadol HCl 50 MG DAILY NEEDED PRN 10/08 1915 DC 10/09 PO 2002 Trimethobenzamide HCl 200 MG TID PRN 10/05 0215 AC 10/05 IM 2239 Results Last 48 Hrs of Labs/Mics: Laboratory Tests 10/10/17 0615: Anion Gap 9, Estimated GFR > 60, BUN/Creatinine Ratio 18.8, Magnesium 1.7, CBC w Diff NO MAN DIFF REQ, RBC 4.53 L, MCV 97.1 H, MCH 32.8 H, MCHC 33.8, RDW 15.8 H, MPV 9.5, Gran % 64.1, Lymphocytes % 22.7, Monocytes % 8.9, Eosinophils % 3.5 , Basophils % 0.8, Absolute Granulocytes 5.2, Absolute Lymphocytes 1.8, Absolute Monocytes 0.7 H, Absolute Eosinophils 0.3, Absolute Basophils 0.1 10/09/17 0655: Anion Gap 11, Estimated GFR > 60, BUN/Creatinine Ratio 15.0, Magnesium 1.8 Assessment/Plan Assessment/Plan Assessment: 1. Atrial fibrillation, rate under control 2. Frequent falls 3. Alcohol abuse Plan: * Continue metoprolol and diltiazem for rate control * Continue Cardizem CD 360 mg p.o. daily * Continue aspirin. Anticoagulation is contraindicated because of frequent falls * Follow up 2 weeks after discharge Continue telemetry? No
[2017-10-10 10:43] VITALS: BP 122/80
[2017-10-10] MEDS ORDERED: DILTIAZEM 24HR240 MG PO (10:59)
== END 2017-10-10 11:46 | DRG 775 ==
LOC: ERH 14:12 → ERHI 19:24 → 1NO 19:24 → ENRESERV 20:33 → ENTRNSPT 22:06 → EDTRNSPTSTS 22:11 → EDTRNSPT 22:11 → CMPTRNSPT 22:27 → 1NO 22:27 → ENPENDDIS 10-10 10:55 → 1NO 10-10 11:46
PROVIDERS: Internal Medicine Interventional Cardiology; Physician Assistant; Student in an Organized Health Care Education/Training Program
DX: F10.239 Alcohol dependence with withdrawal, unspecified (principal); I48.91 Unspecified atrial fibrillation; I10 Essential (primary) hypertension; F32.9 Major depressive disorder, single episode, unspecified; M25.561 Pain in right knee; Z91.81 History of falling; T46.1X6A Underdosing of calcium-channel blockers, initial encounter; Z91.138 Patient's unintentional underdosing of medication regimen for other reason; Y90.7 Blood alcohol level of 200-239 mg/100 ml; I48.92 Unspecified atrial flutter; W18.30XA Fall on same level, unspecified, initial encounter; Y92.410 Unspecified street and highway as the place of occurrence of the external cause; Z88.6 Allergy status to analgesic agent; Z87.891 Personal history of nicotine dependence; R00.0 Tachycardia, unspecified
CPT/HCPCS: 1NP; 36415; 36592; 73560-RT; 80307; 82436; 93005; 93010; 93306; 96374; 96375; 96376; 97110-GP; 97116-GP; 97161-GP; 99291; G0480; J0131; J1650; J1885; J2270; J2765; J3250; J3490